=== PATIENT | male | born 1960 | race Caucasian/White ===

== ENCOUNTER → 2016-07-01 | Outpatient (REF) | payer MEDICARE | LOC: M SFHCPLAZ 08:54 | PROVIDERS: ATTEND Physician Assistant Medical | DX: D69.6 Thrombocytopenia, unspecified (principal); E04.1 Nontoxic single thyroid nodule; Z53.8 Procedure and treatment not carried out for other reasons ==

== ENCOUNTER → 2016-08-05 | Outpatient (REF) | payer MEDICARE ==
[2016-08-05 17:47] LABS: BASO # 0.1 K/mm3 (0.0-0.2); BASO % 0.7 % (0.0-1.0); EOS # 0.3 K/mm3 (0.0-0.50); EOS % 3.2 % (0.0-3.0); LARGE UNSTAINED CELL # 0.2 K/mm3 (0.0-0.4); LARGE UNSTAINED CELL % 2.1 % (0.0-4.0); LYMPH # 2.5 K/mm3 (1.5-4.5); LYMPH % 26.3 % (24.0-44.0); MEAN CORPUSCULAR HGB CONC 34.4 g/dl (32.0-36.5); MEAN CORPUSCULAR VOLUME 90.2 fl (80.0-96.0); MONO # 0.6 K/mm3 (0.0-0.8); MONO % 6.6 % (0.0-5.0); NEUTROPHILS # 5.5 K/mm3 (1.8-7.7); PLATELET COUNT, AUTOMATED 158 k/mm3 (150-450); RED CELL DISTRIBUTION WIDTH 13.4 % (11.5-14.5); WHITE BLOOD COUNT 8.9 K/mm3 (4.0-10.0)
[2016-08-05 18:20] LABS: ALBUMIN 4.1 GM/DL (3.2-5.2); ALBUMIN/GLOBULIN RATIO 1.21 (1.00-1.93); ALKALINE PHOSPHATASE 139 U/L (45-117); ALT/SGPT 37 U/L (12-78); ANION GAP 6 MEQ/L (8-16); AST/SGOT 24 U/L (15-37); BILIRUBIN,TOTAL 0.5 MG/DL (0.2-1.0); BLOOD UREA NITROGEN 18 MG/DL (7-18); CALCIUM LEVEL 8.7 MG/DL (8.5-10.1); CARBON DIOXIDE LEVEL 32 MEQ/L (21-32); CHLORIDE LEVEL 104 MEQ/L (98-107); CHOLESTEROL LEVEL 122 MG/DL (<200); CREATININE FOR GFR 0.94 MG/DL (0.70-1.30); FREE T4 1.03 NG/DL (0.76-1.46); GLOMERULAR FILTRATION RATE > 60.0 (>56); GLUCOSE, FASTING 83 MG/DL (70-105); POTASSIUM SERUM 4.1 MEQ/L (3.5-5.1); SODIUM LEVEL 142 MEQ/L (136-145); TOTAL PROTEIN 7.5 GM/DL (6.4-8.2); TRIGLYCERIDES LEVEL 451 MG/DL (<150)
== END ==
LOC: M SFHCPLAZ 15:46
PROVIDERS: ATTEND Physician Assistant Medical
DX: D69.6 Thrombocytopenia, unspecified (principal); N20.0 Calculus of kidney; E05.90 Thyrotoxicosis, unspecified without thyrotoxic crisis or storm; E78.2 Mixed hyperlipidemia

== ENCOUNTER → 2016-08-22 | Outpatient (CLI) | payer MEDICARE ==
--- NOTE | 2016-08-22 13:55 | REP ---
RENAL AND BLADDER ULTRASOUND: Real-time sonographic evaluation of the kidneys is performed and demonstrates both the kidneys to be normal in size and echotexture, right kidney measuring 14.2 x 5.8 x 5.3 cm and left kidney 14.2 x 4.6 x 5.2 cm. There is no hydronephrosis. There is a calculus in the mid right renal collecting system 8 mm in diameter. No other definite renal stones are seen. Urinary bladder measures 8.6 x 8.6 x 5.8 cm with no mass or calculus. Prevoid volume is 280 mL. There are ureteral jets in the urinary bladder with Doppler color evaluation bilaterally. Postvoid residual is 13 mL which is approximately 5% of the original volume. IMPRESSION: No hydronephrosis. There is a calculus in the mid right renal collecting system 8 mm in diameter in diameter. Signed by Skyler Howard MD 08/22/2016 04:43 P
== END ==
LOC: M RAD 11:45
PROVIDERS: ATTEND Physician Assistant Medical
DX: N20.0 Calculus of kidney (principal)

== ENCOUNTER → 2016-10-15 | Outpatient (REF) | payer MEDICARE | LOC: M SFHCPLAZ 14:11 | PROVIDERS: ATTEND Physician Assistant Medical | DX: G62.9 Polyneuropathy, unspecified (principal); R60.9 Edema, unspecified; I25.10 Atherosclerotic heart disease of native coronary artery without angina pectoris; I10 Essential (primary) hypertension; Z79.899 Other long term (current) drug therapy ==

== ENCOUNTER → 2016-10-29 | Outpatient (REF) | payer MEDICARE | LOC: M SFHCPLAZ 12:45 | PROVIDERS: ATTEND Physician Assistant Medical | DX: I25.10 Atherosclerotic heart disease of native coronary artery without angina pectoris (principal) ==

== ENCOUNTER → 2017-01-30 | Outpatient (REF) | payer MEDICARE ==
[2017-01-30 13:49] LABS: BASO % 0.6 % (0.0-1.0); EOS # 0.2 K/mm3 (0.0-0.50); EOS % 2.9 % (0.0-3.0); LARGE UNSTAINED CELL # 0.2 K/mm3 (0.0-0.4); LARGE UNSTAINED CELL % 2.7 % (0.0-4.0); LYMPH # 1.9 K/mm3 (1.5-4.5); LYMPH % 27.8 % (24.0-44.0); MEAN CORPUSCULAR HEMOGLOBIN 32.1 pg (27.0-33.0); MEAN CORPUSCULAR HGB CONC 35.5 g/dl (32.0-36.5); MEAN CORPUSCULAR VOLUME 90.6 fl (80.0-96.0); MONO # 0.4 K/mm3 (0.0-0.8); MONO % 6.2 % (0.0-5.0); NEUTROPHILS % 59.7 % (36.0-66.0); PLATELET COUNT, AUTOMATED 136 k/mm3 (150-450); RED CELL DISTRIBUTION WIDTH 12.8 % (11.5-14.5); WHITE BLOOD COUNT 6.6 K/mm3 (4.0-10.0)
[2017-01-30 14:38] LABS: ALBUMIN 4.2 GM/DL (3.2-5.2); ALKALINE PHOSPHATASE 102 U/L (45-117); ALT/SGPT 36 U/L (12-78); ANION GAP 10 MEQ/L (8-16); AST/SGOT 24 U/L (15-37); BILIRUBIN,TOTAL 0.5 MG/DL (0.2-1.0); BLOOD UREA NITROGEN 16 MG/DL (7-18); CALCIUM LEVEL 8.7 MG/DL (8.5-10.1); CARBON DIOXIDE LEVEL 26 MEQ/L (21-32); CHLORIDE LEVEL 107 MEQ/L (98-107); CREATININE FOR GFR 0.92 MG/DL (0.70-1.30); GLOMERULAR FILTRATION RATE > 60.0 (>56); GLUCOSE, FASTING 70 MG/DL (70-105); POTASSIUM SERUM 4.4 MEQ/L (3.5-5.1); SODIUM LEVEL 143 MEQ/L (136-145); TOTAL PROTEIN 7.2 GM/DL (6.4-8.2)
== END ==
LOC: M SFHCPLAZ 11:36
PROVIDERS: ATTEND Physician Assistant Medical
DX: D69.6 Thrombocytopenia, unspecified (principal); E78.2 Mixed hyperlipidemia; I10 Essential (primary) hypertension

== ENCOUNTER → 2017-03-20 | Outpatient (REF) | payer MEDICARE ==
[2017-03-20 16:14] LABS: BASO % 0.4 % (0.0-1.0); EOS # 0.2 10^3/uL (0.0-0.50); EOS % 2.1 % (0.0-3.0); IMMATURE GRANULOCYTE % 0.1 % (0-0); LYMPH # 2.8 10^3/uL (1.5-4.5); MEAN CORPUSCULAR HEMOGLOBIN 31.3 pg (27.0-33.0); MEAN CORPUSCULAR HGB CONC 33.3 g/dl (32.0-36.5); MEAN CORPUSCULAR VOLUME 93.8 fl (80.0-96.0); MONO # 0.9 10^3/uL (0.0-0.8); MONO % 10.9 % (0.0-5.0); NEUTROPHILS # 4.3 10^3/uL (1.8-7.7); NEUTROPHILS % 52.5 % (36.0-66.0); PLATELET COUNT, AUTOMATED 134 10^3/uL (150-450); RED CELL DISTRIBUTION WIDTH 13.5 % (11.5-14.5); WHITE BLOOD COUNT 8.1 10^3/uL (4.0-10.0)
[2017-03-20 16:27] LABS: ADD MORPHOLOGY? NO
[2017-03-20 16:44] LABS: ERYTHROCYTE SEDIMENTATION RATE 12 mm/hr (0-20)
== END ==
LOC: M SFHCPLAZ 12:23
PROVIDERS: ATTEND Internal Medicine Infectious Disease
DX: H70.11 Chronic mastoiditis, right ear (principal)

== ENCOUNTER → 2017-05-13 | Outpatient (REF) | payer MEDICARE | LOC: M SFHCPLAZ 15:37 | PROVIDERS: ATTEND Internal Medicine Infectious Disease | DX: H70.11 Chronic mastoiditis, right ear (principal) ==

== ENCOUNTER 2017-06-14 22:21 | Emergency (ER) | payer BC, MEDICARE ==
[2017-06-14 23:55] LABS: BASO % 0.4 % (0.0-1.0); EOS # 0.2 10^3/uL (0.0-0.50); EOS % 2.7 % (0.0-3.0); HEMATOCRIT 40.4 % (42.0-52.0); HEMOGLOBIN 14.2 g/dl (14.0-18.0); IMMATURE GRANULOCYTE % 0.3 % (0-0); LYMPH # 1.9 10^3/uL (1.5-4.5); LYMPH % 26.5 % (24.0-44.0); MEAN CORPUSCULAR HEMOGLOBIN 31.3 pg (27.0-33.0); MEAN CORPUSCULAR HGB CONC 35.1 g/dl (32.0-36.5); MEAN CORPUSCULAR VOLUME 89.2 fl (80.0-96.0); MONO # 0.6 10^3/uL (0.0-0.8); MONO % 8.9 % (0.0-5.0); NEUTROPHILS # 4.4 10^3/uL (1.8-7.7); NEUTROPHILS % 61.2 % (36.0-66.0); PLATELET COUNT, AUTOMATED 121 10^3/uL (150-450); RED BLOOD COUNT 4.53 10^6/uL (4.30-6.10); RED CELL DISTRIBUTION WIDTH 12.5 % (11.5-14.5); WHITE BLOOD COUNT 7.1 10^3/uL (4.0-10.0)
[2017-06-15 00:14] LABS: ERYTHROCYTE SEDIMENTATION RATE 10 mm/hr (0-20)
[2017-06-15 00:23] LABS: ALBUMIN 3.9 GM/DL (3.2-5.2); ALBUMIN/GLOBULIN RATIO 1.26 (1.00-1.93); ALKALINE PHOSPHATASE 91 U/L (45-117); ALT/SGPT 45 U/L (12-78); ANION GAP 8 MEQ/L (8-16); AST/SGOT 32 U/L (7-37); BILIRUBIN,DIRECT 0.1 MG/DL (0.0-0.2); BILIRUBIN,TOTAL 0.5 MG/DL (0.2-1.0); BLOOD UREA NITROGEN 14 MG/DL (7-18); C REACTIVE PROTEIN QUANTITATIV < 0.30 MG/DL (0.00-0.30); CALCIUM LEVEL 8.8 MG/DL (8.5-10.1); CARBON DIOXIDE LEVEL 28 MEQ/L (21-32); CHLORIDE LEVEL 107 MEQ/L (98-107); CREATININE FOR GFR 0.82 MG/DL (0.70-1.30); GLOMERULAR FILTRATION RATE > 60.0 (>56); GLUCOSE, FASTING 90 MG/DL (70-105); POTASSIUM SERUM 4.1 MEQ/L (3.5-5.1); SODIUM LEVEL 143 MEQ/L (136-145)
[2017-06-15 00:31] LABS: LACTIC ACID SEPSIS PROTOCOL 1.5 MMOL/L (0.4-2.0)
[2017-06-15] MEDS: ACETAMINOPHEN TAB 650MG DOSE (2X325MG) PO (01:46)
[2017-06-15] MEDS: MORPHINE 4 MG/ML 1ML SYRINGE IV (02:35)
== END 2017-06-15 05:03 | disposition short-term general hospital (02) ==
LOC: M ED 06-15 05:03
DX: M79.671 Pain in right foot (principal); M79.672 Pain in left foot; I11.0 Hypertensive heart disease with heart failure; I50.9 Heart failure, unspecified; G47.33 Obstructive sleep apnea (adult) (pediatric); I25.2 Old myocardial infarction; E78.5 Hyperlipidemia, unspecified; K21.9 Gastro-esophageal reflux disease without esophagitis; Z99.89 Dependence on other enabling machines and devices; Z79.899 Other long term (current) drug therapy; Z79.01 Long term (current) use of anticoagulants; Z88.0 Allergy status to penicillin; Z88.8 Allergy status to other drugs, medicaments and biological substances; Z87.891 Personal history of nicotine dependence
CPT/HCPCS: 93970

== ENCOUNTER 2017-07-10 08:45 | Inpatient (IN) | payer MEDICARE, BC ==
[2017-07-10 09:21] LABS: VENOUS BASE EXCESS 2.1 (-2.0-2.0); VENOUS HCO3 30.1 MEQ/L (23.0-27.0); VENOUS O2 SATURATION 42.2 % (60.0-80.0); VENOUS PARTIAL PRESSURE CO2 60.5 mmHg (38.0-50.0); VENOUS PARTIAL PRESSURE O2 24.7 mmHg (30.0-50.0); VENOUS PH 7.314 UNITS (7.330-7.430); VENOUS STANDARD HCO3 24.8 MEQ/L; VENOUS TOTAL CO2 31.9 MEQ/L (24.0-28.0)
[2017-07-10 09:24] LABS: BASO % 0.5 % (0.0-1.0); EOS # 0.1 10^3/uL (0.0-0.50); EOS % 1.7 % (0.0-3.0); HEMATOCRIT 44.1 % (42.0-52.0); HEMOGLOBIN 15.2 g/dl (14.0-18.0); IMMATURE GRANULOCYTE % 0.3 % (0-0); LYMPH # 1.9 10^3/uL (1.5-4.5); LYMPH % 25.8 % (24.0-44.0); MEAN CORPUSCULAR HEMOGLOBIN 31.5 pg (27.0-33.0); MEAN CORPUSCULAR HGB CONC 34.5 g/dl (32.0-36.5); MEAN CORPUSCULAR VOLUME 91.3 fl (80.0-96.0); MONO # 0.9 10^3/uL (0.0-0.8); MONO % 11.9 % (0.0-5.0); NEUTROPHILS # 4.5 10^3/uL (1.8-7.7); NEUTROPHILS % 59.8 % (36.0-66.0); PLATELET COUNT, AUTOMATED 137 10^3/uL (150-450); RED BLOOD COUNT 4.83 10^6/uL (4.30-6.10); RED CELL DISTRIBUTION WIDTH 13.1 % (11.5-14.5); WHITE BLOOD COUNT 7.5 10^3/uL (4.0-10.0)
[2017-07-10 09:38] LABS: INR 1.12; PROTHROMBIN TIME 14.6 SECONDS (12.4-14.5)
[2017-07-10 09:52] LABS: ANION GAP 6 MEQ/L (8-16); BLOOD UREA NITROGEN 18 MG/DL (7-18); CALCIUM LEVEL 9.3 MG/DL (8.5-10.1); CARBON DIOXIDE LEVEL 31 MEQ/L (21-32); CHLORIDE LEVEL 102 MEQ/L (98-107); CPK CREATINE PHOSPHOKINASE 78 U/L (39-308); CREATININE FOR GFR 1.14 MG/DL (0.70-1.30); GLOMERULAR FILTRATION RATE > 60.0 (>56); GLUCOSE, FASTING 76 MG/DL (70-100); MAGNESIUM LEVEL 2.1 MG/DL (1.8-2.4); POTASSIUM SERUM 4.5 MEQ/L (3.5-5.1); SODIUM LEVEL 139 MEQ/L (136-145); TROPONIN I < 0.02 NG/ML (< 0.10)
[2017-07-10 09:57] LABS: CK-MB VALUE MASS 1.1 NG/ML (0.0-3.6); MB/CK RELATIVE INDEX 1.41 (< OR =4)
[2017-07-10] MEDS: NS 500 ML IV (10:45)
[2017-07-10] MEDS ORDERED: ACETAMINOPHEN TAB 650MG DOSE (2X325MG) PO (13:00)
[2017-07-10] MEDS ORDERED: ISOVUE-370 76% 100ML VIAL (Q9967) As Ordered (13:48)
[2017-07-10] MEDS: ENOXAPARIN 40 MG/0.4 ML SYRINGE (J1650) SC (15:11)
[2017-07-10] MEDS: NORCO, ANEXSIA 5/325MG TABLET (HYDROcodone/ACETAMINOPHEN) PO (15:12)
[2017-07-10] MEDS: GABAPENTIN 400 MG CAP PO (16:29)
[2017-07-10] MEDS: PERCOCET 5MG/325MG TAB PO (18:41)
[2017-07-10 18:52] LABS: CK-MB VALUE MASS 1.3 NG/ML (0.0-3.6); CPK CREATINE PHOSPHOKINASE 61 U/L (39-308); MB/CK RELATIVE INDEX 2.13 (< OR =4); TROPONIN I < 0.02 NG/ML (< 0.10)
[2017-07-10 18:57] LABS: CORTISOL AM 15.2 UG/DL (4.3-22.4)
[2017-07-10] MEDS: ATORVASTATIN 20 MG TAB PO (20:35)
[2017-07-10] MEDS: GABAPENTIN 300 MG CAP PO (20:35)
[2017-07-10] MEDS: METOPROLOL TART 50 MG TAB PO (20:36)
[2017-07-10] MEDS: zolPIDEM TARTRATE 10MG TAB PO (22:10)
[2017-07-11] MEDS: PERCOCET 5MG/325MG TAB PO ×2 (00:41→17:01)
[2017-07-11 05:31] LABS: HEMOGLOBIN 13.5 g/dl (14.0-18.0); MEAN CORPUSCULAR HEMOGLOBIN 31.5 pg (27.0-33.0); MEAN CORPUSCULAR HGB CONC 33.8 g/dl (32.0-36.5); MEAN CORPUSCULAR VOLUME 93.2 fl (80.0-96.0); PLATELET COUNT, AUTOMATED 115 10^3/uL (150-450); RED BLOOD COUNT 4.29 10^6/uL (4.30-6.10); RED CELL DISTRIBUTION WIDTH 13.2 % (11.5-14.5); WHITE BLOOD COUNT 5.6 10^3/uL (4.0-10.0)
[2017-07-11 05:56] LABS: ANION GAP 6 MEQ/L (8-16); BLOOD UREA NITROGEN 16 MG/DL (7-18); CALCIUM LEVEL 8.8 MG/DL (8.5-10.1); CARBON DIOXIDE LEVEL 29 MEQ/L (21-32); CHLORIDE LEVEL 104 MEQ/L (98-107); CPK CREATINE PHOSPHOKINASE 63 U/L (39-308); CREATININE FOR GFR 1.07 MG/DL (0.70-1.30); GLOMERULAR FILTRATION RATE > 60.0 (>56); GLUCOSE, FASTING 107 MG/DL (70-100); MB/CK RELATIVE INDEX 1.58 (< OR =4); POTASSIUM SERUM 3.7 MEQ/L (3.5-5.1); SODIUM LEVEL 139 MEQ/L (136-145); TROPONIN I < 0.02 NG/ML (< 0.10)
[2017-07-11] MEDS: PANTOPRAZOLE 40MG TAB (PROTONIX) PO (08:45)
[2017-07-11] MEDS: CLOPIDOGREL 75 MG TAB PO (08:45)
[2017-07-11] MEDS: FUROSEMIDE 40 MG TAB PO (08:45)
[2017-07-11] MEDS: DULoxetine 30 MG CAP (CYMBALTA) PO (08:45)
[2017-07-11] MEDS: GABAPENTIN 400 MG CAP PO ×2 (08:45→17:00)
[2017-07-11] MEDS: ENOXAPARIN 40 MG/0.4 ML SYRINGE (J1650) SC (08:45)
[2017-07-11] MEDS: METOPROLOL TART 50 MG TAB PO ×2 (10:00→20:15)
[2017-07-11 12:42] LABS: CK-MB VALUE MASS 1.1 NG/ML (0.0-3.6); CPK CREATINE PHOSPHOKINASE 63 U/L (39-308); MB/CK RELATIVE INDEX 1.74 (< OR =4); TROPONIN I < 0.02 NG/ML (< 0.10)
[2017-07-11] MEDS: NORCO, ANEXSIA 5/325MG TABLET (HYDROcodone/ACETAMINOPHEN) PO ×2 (13:09→22:13)
[2017-07-11] MEDS: GABAPENTIN 300 MG CAP PO (20:20)
[2017-07-11] MEDS: ATORVASTATIN 20 MG TAB PO (20:20)
[2017-07-11] MEDS: zolPIDEM TARTRATE 10MG TAB PO (22:13)
[2017-07-12] MEDS: PERCOCET 5MG/325MG TAB PO ×3 (03:58→21:50)
[2017-07-12 05:20] LABS: HEMATOCRIT 40.5 % (42.0-52.0); HEMOGLOBIN 13.8 g/dl (14.0-18.0); MEAN CORPUSCULAR HEMOGLOBIN 30.9 pg (27.0-33.0); MEAN CORPUSCULAR HGB CONC 34.1 g/dl (32.0-36.5); MEAN CORPUSCULAR VOLUME 90.8 fl (80.0-96.0); PLATELET COUNT, AUTOMATED 103 10^3/uL (150-450); RED BLOOD COUNT 4.46 10^6/uL (4.30-6.10); RED CELL DISTRIBUTION WIDTH 12.8 % (11.5-14.5); WHITE BLOOD COUNT 4.6 10^3/uL (4.0-10.0)
[2017-07-12 05:41] LABS: ANION GAP 6 MEQ/L (8-16); BLOOD UREA NITROGEN 14 MG/DL (7-18); CALCIUM LEVEL 8.6 MG/DL (8.5-10.1); CARBON DIOXIDE LEVEL 29 MEQ/L (21-32); CHLORIDE LEVEL 107 MEQ/L (98-107); CREATININE FOR GFR 0.91 MG/DL (0.70-1.30); GLOMERULAR FILTRATION RATE > 60.0 (>56); GLUCOSE, FASTING 111 MG/DL (70-100); POTASSIUM SERUM 3.8 MEQ/L (3.5-5.1); SODIUM LEVEL 142 MEQ/L (136-145)
[2017-07-12] MEDS: GABAPENTIN 400 MG CAP PO (08:49)
[2017-07-12] MEDS: ENOXAPARIN 40 MG/0.4 ML SYRINGE (J1650) SC (08:49)
[2017-07-12] MEDS: DULoxetine 20 MG CAP (CYMBALTA) PO (08:49)
[2017-07-12] MEDS: PANTOPRAZOLE 40MG TAB (PROTONIX) PO (08:50)
[2017-07-12] MEDS: NORCO, ANEXSIA 5/325MG TABLET (HYDROcodone/ACETAMINOPHEN) PO (08:50)
[2017-07-12] MEDS: CLOPIDOGREL 75 MG TAB PO (08:50)
[2017-07-12] MEDS: FUROSEMIDE 40 MG TAB PO (08:51)
[2017-07-12] MEDS: METOPROLOL TART 50 MG TAB PO ×2 (08:51→21:50)
[2017-07-12] MEDS ORDERED: SLF 3 ML SYR IV (11:15)
[2017-07-12] MEDS: SLF 3 ML SYR IV ×2 (12:00→21:51)
[2017-07-12] MEDS: GABAPENTIN 300 MG CAP PO ×2 (15:02→21:48)
[2017-07-12] MEDS: zolPIDEM TARTRATE 10MG TAB PO (21:48)
[2017-07-12] MEDS: ATORVASTATIN 20 MG TAB PO (21:50)
[2017-07-13] MEDS: NORCO, ANEXSIA 5/325MG TABLET (HYDROcodone/ACETAMINOPHEN) PO ×2 (01:16→09:03)
[2017-07-13 06:03] LABS: HEMOGLOBIN 13.7 g/dl (14.0-18.0); MEAN CORPUSCULAR HEMOGLOBIN 31.4 pg (27.0-33.0); MEAN CORPUSCULAR HGB CONC 34.3 g/dl (32.0-36.5); MEAN CORPUSCULAR VOLUME 91.5 fl (80.0-96.0); PLATELET COUNT, AUTOMATED 102 10^3/uL (150-450); RED BLOOD COUNT 4.37 10^6/uL (4.30-6.10); RED CELL DISTRIBUTION WIDTH 12.9 % (11.5-14.5); WHITE BLOOD COUNT 5.3 10^3/uL (4.0-10.0)
[2017-07-13 06:20] LABS: ANION GAP 6 MEQ/L (8-16); BLOOD UREA NITROGEN 12 MG/DL (7-18); CALCIUM LEVEL 8.9 MG/DL (8.5-10.1); CARBON DIOXIDE LEVEL 30 MEQ/L (21-32); CHLORIDE LEVEL 105 MEQ/L (98-107); CREATININE FOR GFR 0.91 MG/DL (0.70-1.30); GLOMERULAR FILTRATION RATE > 60.0 (>56); GLUCOSE, FASTING 87 MG/DL (70-100); POTASSIUM SERUM 4.2 MEQ/L (3.5-5.1); SODIUM LEVEL 141 MEQ/L (136-145)
[2017-07-13] MEDS: SLF 3 ML SYR IV (06:47)
[2017-07-13] MEDS: GABAPENTIN 300 MG CAP PO (09:03)
[2017-07-13] MEDS: METOPROLOL TART 50 MG TAB PO (09:03)
[2017-07-13] MEDS: CLOPIDOGREL 75 MG TAB PO (09:04)
[2017-07-13] MEDS: FUROSEMIDE 40 MG TAB PO (09:04)
[2017-07-13] MEDS: ENOXAPARIN 40 MG/0.4 ML SYRINGE (J1650) SC (09:04)
[2017-07-13] MEDS: DULoxetine 20 MG CAP (CYMBALTA) PO (09:04)
[2017-07-13] MEDS: PANTOPRAZOLE 40MG TAB (PROTONIX) PO (09:04)
[2017-07-13 12:39] LABS: PSA SCREENING 0.93 NG/ML (< 4.0)
== END 2017-07-13 13:42 | disposition home or self-care (01) | DRG 312 ==
LOC: M PCU 07-12 05:54 → M MSPAV 07-12 19:44 → M ED 08:45 → M ED INP 12:52 → M PCU 19:00
DX: I95.2 Hypotension due to drugs (principal); Z68.42 Body mass index [BMI] 45.0-49.9, adult; I50.812 Chronic right heart failure; E66.01 Morbid (severe) obesity due to excess calories; I11.0 Hypertensive heart disease with heart failure; J44.9 Chronic obstructive pulmonary disease, unspecified; I25.10 Atherosclerotic heart disease of native coronary artery without angina pectoris; Z95.810 Presence of automatic (implantable) cardiac defibrillator; I25.2 Old myocardial infarction; Z95.5 Presence of coronary angioplasty implant and graft; Z86.74 Personal history of sudden cardiac arrest; Z88.0 Allergy status to penicillin; Z88.8 Allergy status to other drugs, medicaments and biological substances; Z79.899 Other long term (current) drug therapy; Z87.891 Personal history of nicotine dependence; N40.0 Benign prostatic hyperplasia without lower urinary tract symptoms; T43.015A Adverse effect of tricyclic antidepressants, initial encounter

== ENCOUNTER → 2017-07-25 | Outpatient (REF) | payer MEDICARE ==
[2017-07-25 13:02] LABS: BASO % 0.5 % (0.0-1.0); EOS # 0.2 10^3/uL (0.0-0.50); EOS % 2.5 % (0.0-3.0); HEMATOCRIT 43.1 % (42.0-52.0); HEMOGLOBIN 14.7 g/dl (14.0-18.0); IMMATURE GRANULOCYTE % 0.2 % (0-3.0); LYMPH # 1.9 10^3/uL (1.5-4.5); LYMPH % 23.1 % (24.0-44.0); MEAN CORPUSCULAR HEMOGLOBIN 31.5 pg (27.0-33.0); MEAN CORPUSCULAR HGB CONC 34.1 g/dl (32.0-36.5); MEAN CORPUSCULAR VOLUME 92.3 fl (80.0-96.0); MONO # 0.9 10^3/uL (0.0-0.8); MONO % 10.7 % (0.0-5.0); NEUTROPHILS # 5.1 10^3/uL (1.8-7.7); PLATELET COUNT, AUTOMATED 155 10^3/uL (150-450); RED BLOOD COUNT 4.67 10^6/uL (4.30-6.10); RED CELL DISTRIBUTION WIDTH 13.2 % (11.5-14.5); WHITE BLOOD COUNT 8.2 10^3/uL (4.0-10.0)
[2017-07-25 13:35] LABS: ALBUMIN 4.3 GM/DL (3.2-5.2); ALBUMIN/GLOBULIN RATIO 1.39 (1.00-1.93); ALKALINE PHOSPHATASE 95 U/L (45-117); ALT/SGPT 44 U/L (12-78); ANION GAP 7 MEQ/L (8-16); AST/SGOT 25 U/L (7-37); BILIRUBIN,TOTAL 0.7 MG/DL (0.2-1.0); BLOOD UREA NITROGEN 13 MG/DL (7-18); CALCIUM LEVEL 9.3 MG/DL (8.5-10.1); CARBON DIOXIDE LEVEL 31 MEQ/L (21-32); CHLORIDE LEVEL 104 MEQ/L (98-107); CREATININE FOR GFR 1.02 MG/DL (0.70-1.30); GLOMERULAR FILTRATION RATE > 60.0 (>56); GLUCOSE, FASTING 92 MG/DL (70-100); POTASSIUM SERUM 4.3 MEQ/L (3.5-5.1); SODIUM LEVEL 142 MEQ/L (136-145); TOTAL PROTEIN 7.4 GM/DL (6.4-8.2)
== END ==
LOC: M SFHCPLAZ 08:47
DX: R55 Syncope and collapse (principal)
CPT/HCPCS: 80053

== ENCOUNTER → 2017-07-31 | Outpatient (REF) | payer MEDICARE ==
[2017-07-31 11:00] LABS: BASO % 0.5 % (0.0-1.0); EOS # 0.1 10^3/uL (0.0-0.50); EOS % 1.8 % (0.0-3.0); HEMATOCRIT 44.4 % (42.0-52.0); HEMOGLOBIN 15.2 g/dl (14.0-18.0); IMMATURE GRANULOCYTE % 0.3 % (0-3.0); LYMPH % 33.6 % (24.0-44.0); MEAN CORPUSCULAR HEMOGLOBIN 31.3 pg (27.0-33.0); MEAN CORPUSCULAR HGB CONC 34.2 g/dl (32.0-36.5); MEAN CORPUSCULAR VOLUME 91.5 fl (80.0-96.0); MONO # 0.7 10^3/uL (0.0-0.8); MONO % 11.2 % (0.0-5.0); NEUTROPHILS # 3.1 10^3/uL (1.8-7.7); NEUTROPHILS % 52.6 % (36.0-66.0); PLATELET COUNT, AUTOMATED 145 10^3/uL (150-450); RED BLOOD COUNT 4.85 10^6/uL (4.30-6.10); RED CELL DISTRIBUTION WIDTH 12.9 % (11.5-14.5)
[2017-07-31 11:32] LABS: ERYTHROCYTE SEDIMENTATION RATE 7 mm/hr (0-20)
[2017-07-31 11:33] LABS: ALBUMIN 4.4 GM/DL (3.2-5.2); ALBUMIN/GLOBULIN RATIO 1.47 (1.00-1.93); ALKALINE PHOSPHATASE 102 U/L (45-117); ALT/SGPT 42 U/L (12-78); ANION GAP 6 MEQ/L (8-16); AST/SGOT 23 U/L (7-37); BILIRUBIN,TOTAL 0.7 MG/DL (0.2-1.0); BLOOD UREA NITROGEN 15 MG/DL (7-18); C REACTIVE PROTEIN QUANTITATIV < 0.30 MG/DL (0.00-0.30); CALCIUM LEVEL 9.2 MG/DL (8.5-10.1); CARBON DIOXIDE LEVEL 31 MEQ/L (21-32); CHLORIDE LEVEL 104 MEQ/L (98-107); CREATININE FOR GFR 0.97 MG/DL (0.70-1.30); GLOMERULAR FILTRATION RATE > 60.0 (>56); GLUCOSE, FASTING 88 MG/DL (70-100); POTASSIUM SERUM 4.4 MEQ/L (3.5-5.1); PSA SCREENING 1.11 NG/ML (< 4.0); SODIUM LEVEL 141 MEQ/L (136-145); TOTAL PROTEIN 7.4 GM/DL (6.4-8.2)
== END ==
LOC: M SFHCPLAZ 09:12
DX: H70.11 Chronic mastoiditis, right ear (principal); N40.2 Nodular prostate without lower urinary tract symptoms; R55 Syncope and collapse; I73.9 Peripheral vascular disease, unspecified
CPT/HCPCS: 80053

== ENCOUNTER → 2017-09-01 | Outpatient (CLI) | payer MEDICARE ==
[~2017-09-01] MED LIST: ISOVUE-370 76% 100ML VIAL (Q9967) As Ordered
== END ==
LOC: M RAD 14:02
DX: R55 Syncope and collapse (principal)
CPT/HCPCS: Q9967

== ENCOUNTER 2017-09-07 16:17 | Emergency (ER) | payer MEDICARE ==
[2017-09-07 17:50] LABS: BASO % 0.4 % (0.0-1.0); EOS # 0.1 10^3/uL (0.0-0.50); EOS % 1.8 % (0.0-3.0); HEMATOCRIT 45.5 % (42.0-52.0); HEMOGLOBIN 15.3 g/dl (14.0-18.0); LYMPH # 1.5 10^3/uL (1.5-4.5); LYMPH % 27.4 % (24.0-44.0); MEAN CORPUSCULAR HEMOGLOBIN 30.8 pg (27.0-33.0); MEAN CORPUSCULAR HGB CONC 33.6 g/dl (32.0-36.5); MEAN CORPUSCULAR VOLUME 91.5 fl (80.0-96.0); MONO # 0.5 10^3/uL (0.0-0.8); MONO % 8.7 % (0.0-5.0); NEUTROPHILS # 3.4 10^3/uL (1.8-7.7); NEUTROPHILS % 61.7 % (36.0-66.0); PLATELET COUNT, AUTOMATED 122 10^3/uL (150-450); RED BLOOD COUNT 4.97 10^6/uL (4.30-6.10); RED CELL DISTRIBUTION WIDTH 12.8 % (11.5-14.5); WHITE BLOOD COUNT 5.5 10^3/uL (4.0-10.0)
[2017-09-07 18:14] LABS: ANION GAP 7 MEQ/L (8-16); BLOOD UREA NITROGEN 12 MG/DL (7-18); CARBON DIOXIDE LEVEL 30 MEQ/L (21-32); CHLORIDE LEVEL 104 MEQ/L (98-107); CREATININE FOR GFR 0.97 MG/DL (0.70-1.30); GLOMERULAR FILTRATION RATE > 60.0 (>56); GLUCOSE, FASTING 83 MG/DL (70-100); POTASSIUM SERUM 4.2 MEQ/L (3.5-5.1); SODIUM LEVEL 141 MEQ/L (136-145)
[2017-09-07 18:24] LABS: LACTIC ACID SEPSIS PROTOCOL 1.6 MMOL/L (0.4-2.0)
[2017-09-07] MEDS: MORPHINE 4 MG/ML 1ML VIAL (J2270) IV (18:25)
== END 2017-09-07 19:41 | disposition home or self-care (01) ==
LOC: M ED 16:17
DX: I87.2 Venous insufficiency (chronic) (peripheral) (principal); G62.9 Polyneuropathy, unspecified; Z87.891 Personal history of nicotine dependence; Z88.8 Allergy status to other drugs, medicaments and biological substances; Z88.0 Allergy status to penicillin; Z79.899 Other long term (current) drug therapy; Z79.02 Long term (current) use of antithrombotics/antiplatelets; Z79.891 Long term (current) use of opiate analgesic
CPT/HCPCS: J2270

== ENCOUNTER 2017-09-11 11:37 | Inpatient (IN) | payer MEDICARE ==
[2017-09-11] MEDS: METOPROLOL TART 50 MG TAB PO ×2 (09:00→21:42)
[~2017-09-11 11:37] MED LIST changes: -ISOVUE-370 76% 100ML VIAL (Q9967) As Ordered; +ONDANSETRON 4MG/2ML VIAL (J2405) IV; +PERCOCET 5MG/325MG TAB PO; +zolPIDEM TARTRATE 10MG TAB PO
[2017-09-11] MEDS ORDERED: METHOCARBAMOL 500 MG TAB PO (11:45)
[2017-09-11 12:17] LABS: BASO % 0.6 % (0.0-1.0); EOS # 0.1 10^3/uL (0.0-0.50); EOS % 2.6 % (0.0-3.0); HEMATOCRIT 47.1 % (42.0-52.0); HEMOGLOBIN 15.7 g/dl (13.5-17.5); IMMATURE GRANULOCYTE % 0.2 % (0-3.0); LYMPH # 1.7 10^3/uL (1.5-4.5); LYMPH % 31.4 % (24.0-44.0); MEAN CORPUSCULAR HGB CONC 33.3 g/dl (32.0-36.5); MEAN CORPUSCULAR VOLUME 92.9 fl (80.0-96.0); MONO # 0.5 10^3/uL (0.0-0.8); MONO % 9.8 % (0.0-5.0); NEUTROPHILS # 2.9 10^3/uL (1.8-7.7); NEUTROPHILS % 55.4 % (36.0-66.0); PLATELET COUNT, AUTOMATED 134 10^3/uL (150-450); RED BLOOD COUNT 5.07 10^6/uL (4.30-6.10); RED CELL DISTRIBUTION WIDTH 13.2 % (11.5-14.5); WHITE BLOOD COUNT 5.3 10^3/uL (4.0-10.0)
[2017-09-11 12:29] LABS: INR 1.09; PROTHROMBIN TIME 14.3 SECONDS (12.4-14.5)
[2017-09-11] MEDS: NORCO, ANEXSIA 5/325MG TABLET (HYDROcodone/ACETAMINOPHEN) PO ×2 (12:33→16:27)
[2017-09-11 13:00] LABS: ALBUMIN 4.8 GM/DL (3.2-5.2); ALKALINE PHOSPHATASE 114 U/L (45-117); ALT/SGPT 46 U/L (12-78); ANION GAP 11 MEQ/L (8-16); AST/SGOT 37 U/L (7-37); BILIRUBIN,TOTAL 0.9 MG/DL (0.2-1.0); BLOOD UREA NITROGEN 14 MG/DL (7-18); CALCIUM LEVEL 9.3 MG/DL (8.5-10.1); CARBON DIOXIDE LEVEL 27 MEQ/L (21-32); CHLORIDE LEVEL 102 MEQ/L (98-107); CHOLESTEROL LEVEL 126 MG/DL (< 200); CPK CREATINE PHOSPHOKINASE 76 U/L (39-308); CREATININE FOR GFR 1.18 MG/DL (0.70-1.30); GLOMERULAR FILTRATION RATE > 60.0 (>56); GLUCOSE, FASTING 67 MG/DL (70-100); LDH LACTATE DEHYDROGENASE 205 U/L (87-241); MAGNESIUM LEVEL 2.2 MG/DL (1.8-2.4); PHOSPHORUS LEVEL 3.1 MG/DL (2.5-4.9); POTASSIUM SERUM 3.9 MEQ/L (3.5-5.1); SODIUM LEVEL 140 MEQ/L (136-145); TRIGLYCERIDES LEVEL 153 MG/DL (<150); TROPONIN I < 0.02 NG/ML (< 0.10)
[2017-09-11] MEDS: NORTRIPTYLINE 25 MG CAP PO ×2 (16:25→21:42)
[2017-09-11] MEDS: METHOCARBAMOL 500 MG TAB PO ×2 (16:26→21:41)
[2017-09-11 20:33] LABS: TROPONIN I < 0.02 NG/ML (< 0.10)
[2017-09-11] MEDS ORDERED: PREGABALIN 25 MG CAP (LYRICA) PO (21:00)
[2017-09-11] MEDS: zolPIDEM CR 6.25MG TABLET (AMBIEN CR) PO (21:42)
[2017-09-11] MEDS: ATORVASTATIN 20 MG TAB PO (21:42)
[2017-09-11] MEDS: MORPHINE 4 MG/ML 1ML VIAL (J2270) IV (21:43)
[2017-09-12] MEDS: MORPHINE 4 MG/ML 1ML VIAL (J2270) IV ×5 (01:11→19:22)
[2017-09-12] MEDS: NORCO, ANEXSIA 5/325MG TABLET (HYDROcodone/ACETAMINOPHEN) PO ×4 (01:31→19:23)
[2017-09-12 05:32] LABS: EOS # 0.2 10^3/uL (0.0-0.50); EOS % 4.5 % (0.0-3.0); HEMATOCRIT 39.5 % (42.0-52.0); LYMPH # 1.6 10^3/uL (1.5-4.5); LYMPH % 39.1 % (24.0-44.0); MEAN CORPUSCULAR HEMOGLOBIN 31.1 pg (27.0-33.0); MEAN CORPUSCULAR HGB CONC 34.4 g/dl (32.0-36.5); MEAN CORPUSCULAR VOLUME 90.4 fl (80.0-96.0); MONO # 0.7 10^3/uL (0.0-0.8); MONO % 17.3 % (0.0-5.0); NEUTROPHILS # 1.5 10^3/uL (1.8-7.7); NEUTROPHILS % 38.1 % (36.0-66.0); PLATELET COUNT, AUTOMATED 108 10^3/uL (150-450); RED BLOOD COUNT 4.37 10^6/uL (4.30-6.10)
[2017-09-12 05:41] LABS: HEMOGLOBIN 13.6 g/dl (13.5-17.5)
[2017-09-12 05:55] LABS: ALBUMIN 3.8 GM/DL (3.2-5.2); ALBUMIN/GLOBULIN RATIO 1.19 (1.00-1.93); ALKALINE PHOSPHATASE 87 U/L (45-117); ALT/SGPT 35 U/L (12-78); ANION GAP 5 MEQ/L (8-16); AST/SGOT 26 U/L (7-37); BILIRUBIN,TOTAL 0.4 MG/DL (0.2-1.0); BLOOD UREA NITROGEN 16 MG/DL (7-18); CALCIUM LEVEL 8.6 MG/DL (8.5-10.1); CARBON DIOXIDE LEVEL 28 MEQ/L (21-32); CHLORIDE LEVEL 109 MEQ/L (98-107); CREATININE FOR GFR 0.96 MG/DL (0.70-1.30); GLOMERULAR FILTRATION RATE > 60.0 (>56); GLUCOSE, FASTING 100 MG/DL (70-100); POTASSIUM SERUM 3.8 MEQ/L (3.5-5.1); SODIUM LEVEL 142 MEQ/L (136-145); TROPONIN I < 0.02 NG/ML (< 0.10)
[2017-09-12] MEDS: PANTOPRAZOLE 40MG TAB (PROTONIX) PO (09:47)
[2017-09-12] MEDS: METOPROLOL TART 50 MG TAB PO ×2 (09:48→20:45)
[2017-09-12] MEDS: FUROSEMIDE 40 MG TAB PO (09:48)
[2017-09-12] MEDS: CLOPIDOGREL 75 MG TAB PO (09:54)
[2017-09-12] MEDS: METHOCARBAMOL 500 MG TAB PO ×3 (10:01→20:38)
[2017-09-12] MEDS: DULoxetine 20 MG CAP (CYMBALTA) PO (10:01)
[2017-09-12] MEDS: NORTRIPTYLINE 25 MG CAP PO ×3 (10:02→20:45)
[2017-09-12 12:15] LABS: INR 1.02; PROTHROMBIN TIME 13.5 SECONDS (12.4-14.5)
[2017-09-12] MEDS ORDERED: ISOVUE-370 76% 100ML VIAL (Q9967) As Ordered (13:09)
[2017-09-12] MEDS: SLF 3 ML SYR IV ×2 (13:58→20:45)
[2017-09-12] MEDS: ATORVASTATIN 20 MG TAB PO (20:38)
[2017-09-12] MEDS: zolPIDEM CR 6.25MG TABLET (AMBIEN CR) PO (21:10)
[2017-09-13] MEDS: NORCO, ANEXSIA 5/325MG TABLET (HYDROcodone/ACETAMINOPHEN) PO ×2 (00:04→08:05)
[2017-09-13] MEDS: MORPHINE 4 MG/ML 1ML VIAL (J2270) IV ×5 (00:04→20:38)
[2017-09-13 00:08] LABS: ANA (HEP2) Negative (.)
[2017-09-13 03:52] LABS: HEMATOCRIT 40.1 % (42.0-52.0); HEMOGLOBIN 13.6 g/dl (13.5-17.5); MEAN CORPUSCULAR HEMOGLOBIN 31.2 pg (27.0-33.0); MEAN CORPUSCULAR HGB CONC 33.9 g/dl (32.0-36.5); PLATELET COUNT, AUTOMATED 104 10^3/uL (150-450); RED BLOOD COUNT 4.36 10^6/uL (4.30-6.10); WHITE BLOOD COUNT 4.3 10^3/uL (4.0-10.0)
[2017-09-13 04:05] LABS: ANION GAP 7 MEQ/L (8-16); BLOOD UREA NITROGEN 15 MG/DL (7-18); CALCIUM LEVEL 8.9 MG/DL (8.5-10.1); CARBON DIOXIDE LEVEL 30 MEQ/L (21-32); CHLORIDE LEVEL 107 MEQ/L (98-107); CREATININE FOR GFR 0.97 MG/DL (0.70-1.30); GLOMERULAR FILTRATION RATE > 60.0 (>56); GLUCOSE, FASTING 101 MG/DL (70-100); POTASSIUM SERUM 3.9 MEQ/L (3.5-5.1); SODIUM LEVEL 144 MEQ/L (136-145)
[2017-09-13] MEDS: SLF 3 ML SYR IV ×3 (06:00→20:39)
[2017-09-13] MEDS: FUROSEMIDE 40 MG TAB PO (08:05)
[2017-09-13] MEDS: PANTOPRAZOLE 40MG TAB (PROTONIX) PO (08:05)
[2017-09-13] MEDS: CLOPIDOGREL 75 MG TAB PO (08:06)
[2017-09-13] MEDS: METHOCARBAMOL 500 MG TAB PO ×3 (08:06→20:36)
[2017-09-13] MEDS: NORTRIPTYLINE 25 MG CAP PO ×3 (08:06→20:36)
[2017-09-13] MEDS: METOPROLOL TART 50 MG TAB PO ×2 (08:06→20:37)
[2017-09-13] MEDS: DULoxetine 20 MG CAP (CYMBALTA) PO (08:06)
[2017-09-13 11:41] LABS: INR 1.03; PROTHROMBIN TIME 13.7 SECONDS (12.4-14.5)
[2017-09-13] MEDS: oxyCODONE 5MG TAB PO ×3 (14:35→23:40)
[2017-09-13] MEDS: zolPIDEM CR 6.25MG TABLET (AMBIEN CR) PO (20:36)
[2017-09-13] MEDS: ATORVASTATIN 20 MG TAB PO (20:36)
[2017-09-14 04:06] LABS: HEMATOCRIT 41.6 % (42.0-52.0); HEMOGLOBIN 14.2 g/dl (13.5-17.5); MEAN CORPUSCULAR HEMOGLOBIN 31.3 pg (27.0-33.0); MEAN CORPUSCULAR HGB CONC 34.1 g/dl (32.0-36.5); MEAN CORPUSCULAR VOLUME 91.6 fl (80.0-96.0); PLATELET COUNT, AUTOMATED 112 10^3/uL (150-450); RED BLOOD COUNT 4.54 10^6/uL (4.30-6.10); RED CELL DISTRIBUTION WIDTH 12.9 % (11.5-14.5); WHITE BLOOD COUNT 5.4 10^3/uL (4.0-10.0)
[2017-09-14 04:26] LABS: ANION GAP 6 MEQ/L (8-16); BLOOD UREA NITROGEN 15 MG/DL (7-18); CALCIUM LEVEL 8.7 MG/DL (8.5-10.1); CARBON DIOXIDE LEVEL 30 MEQ/L (21-32); CHLORIDE LEVEL 107 MEQ/L (98-107); GLOMERULAR FILTRATION RATE > 60.0 (>56); GLUCOSE, FASTING 104 MG/DL (70-100); POTASSIUM SERUM 3.7 MEQ/L (3.5-5.1); SODIUM LEVEL 143 MEQ/L (136-145)
[2017-09-14] MEDS: oxyCODONE 5MG TAB PO ×4 (05:00→21:01)
[2017-09-14] MEDS: SLF 3 ML SYR IV ×3 (05:26→21:00)
[2017-09-14] MEDS: MORPHINE 4 MG/ML 1ML VIAL (J2270) IV ×3 (06:51→20:13)
[2017-09-14] MEDS: METOPROLOL TART 50 MG TAB PO ×2 (08:40→21:00)
[2017-09-14] MEDS: DULoxetine 30 MG CAP (CYMBALTA) PO (08:40)
[2017-09-14] MEDS: FUROSEMIDE 40 MG TAB PO (08:40)
[2017-09-14] MEDS: CLOPIDOGREL 75 MG TAB PO (08:40)
[2017-09-14] MEDS: NORTRIPTYLINE 25 MG CAP PO ×3 (08:40→20:59)
[2017-09-14] MEDS: PANTOPRAZOLE 40MG TAB (PROTONIX) PO (08:40)
[2017-09-14] MEDS: METHOCARBAMOL 500 MG TAB PO ×3 (08:40→20:59)
[2017-09-14] MEDS: zolPIDEM CR 6.25MG TABLET (AMBIEN CR) PO (20:59)
[2017-09-14] MEDS: ATORVASTATIN 20 MG TAB PO (20:59)
[2017-09-15] MEDS: SLF 3 ML SYR IV ×3 (05:01→22:06)
[2017-09-15] MEDS: MORPHINE 4 MG/ML 1ML VIAL (J2270) IV ×3 (05:01→18:38)
[2017-09-15] MEDS: oxyCODONE 5MG TAB PO ×4 (06:51→20:31)
[2017-09-15 07:02] LABS: HEMATOCRIT 41.5 % (42.0-52.0); MEAN CORPUSCULAR HEMOGLOBIN 30.7 pg (27.0-33.0); MEAN CORPUSCULAR HGB CONC 33.7 g/dl (32.0-36.5); PLATELET COUNT, AUTOMATED 107 10^3/uL (150-450); RED BLOOD COUNT 4.56 10^6/uL (4.30-6.10); RED CELL DISTRIBUTION WIDTH 12.9 % (11.5-14.5); WHITE BLOOD COUNT 5.4 10^3/uL (4.0-10.0)
[2017-09-15 07:26] LABS: ANION GAP 7 MEQ/L (8-16); BLOOD UREA NITROGEN 18 MG/DL (7-18); CALCIUM LEVEL 9.1 MG/DL (8.5-10.1); CARBON DIOXIDE LEVEL 30 MEQ/L (21-32); CHLORIDE LEVEL 109 MEQ/L (98-107); CREATININE FOR GFR 1.01 MG/DL (0.70-1.30); GLOMERULAR FILTRATION RATE > 60.0 (>56); GLUCOSE, FASTING 112 MG/DL (70-100); POTASSIUM SERUM 4.2 MEQ/L (3.5-5.1); SODIUM LEVEL 146 MEQ/L (136-145)
[2017-09-15] MEDS: PANTOPRAZOLE 40MG TAB (PROTONIX) PO (08:26)
[2017-09-15] MEDS: NORTRIPTYLINE 25 MG CAP PO ×3 (08:26→22:04)
[2017-09-15] MEDS: CLOPIDOGREL 75 MG TAB PO (08:27)
[2017-09-15] MEDS: METHOCARBAMOL 500 MG TAB PO ×3 (08:27→22:04)
[2017-09-15] MEDS: DULoxetine 30 MG CAP (CYMBALTA) PO (08:27)
[2017-09-15] MEDS: FUROSEMIDE 40 MG TAB PO (08:27)
[2017-09-15] MEDS: METOPROLOL TART 50 MG TAB PO ×2 (11:00→22:04)
[2017-09-15] MEDS: ATORVASTATIN 20 MG TAB PO (22:01)
[2017-09-15] MEDS: zolPIDEM CR 6.25MG TABLET (AMBIEN CR) PO (22:05)
[2017-09-16] MEDS: oxyCODONE 5MG TAB PO ×3 (02:28→13:33)
[2017-09-16] MEDS: MORPHINE 4 MG/ML 1ML VIAL (J2270) IV ×5 (05:19→16:37)
[2017-09-16] MEDS: SLF 3 ML SYR IV ×4 (05:19→21:46)
[2017-09-16 07:20] LABS: HEMATOCRIT 42.8 % (42.0-52.0); HEMOGLOBIN 14.5 g/dl (13.5-17.5); MEAN CORPUSCULAR HEMOGLOBIN 31.4 pg (27.0-33.0); MEAN CORPUSCULAR HGB CONC 33.9 g/dl (32.0-36.5); MEAN CORPUSCULAR VOLUME 92.6 fl (80.0-96.0); PLATELET COUNT, AUTOMATED 116 10^3/uL (150-450); RED BLOOD COUNT 4.62 10^6/uL (4.30-6.10); RED CELL DISTRIBUTION WIDTH 13.1 % (11.5-14.5); WHITE BLOOD COUNT 5.5 10^3/uL (4.0-10.0)
[2017-09-16 07:36] LABS: ANION GAP 3 MEQ/L (8-16); BLOOD UREA NITROGEN 19 MG/DL (7-18); C REACTIVE PROTEIN QUANTITATIV 0.44 MG/DL (0.00-0.30); CALCIUM LEVEL 8.9 MG/DL (8.5-10.1); CARBON DIOXIDE LEVEL 33 MEQ/L (21-32); CHLORIDE LEVEL 107 MEQ/L (98-107); CREATININE FOR GFR 0.89 MG/DL (0.70-1.30); GLOMERULAR FILTRATION RATE > 60.0 (>56); GLUCOSE, FASTING 82 MG/DL (70-100); POTASSIUM SERUM 4.1 MEQ/L (3.5-5.1); SODIUM LEVEL 143 MEQ/L (136-145)
[2017-09-16 08:06] LABS: ERYTHROCYTE SEDIMENTATION RATE 9 mm/hr (0-20)
[2017-09-16] MEDS: DULoxetine 30 MG CAP (CYMBALTA) PO (09:18)
[2017-09-16] MEDS: NORTRIPTYLINE 25 MG CAP PO ×3 (09:18→21:44)
[2017-09-16] MEDS: CLOPIDOGREL 75 MG TAB PO (09:19)
[2017-09-16] MEDS: METHOCARBAMOL 500 MG TAB PO ×3 (09:19→21:43)
[2017-09-16] MEDS: METOPROLOL TART 50 MG TAB PO ×2 (09:19→21:44)
[2017-09-16] MEDS: PANTOPRAZOLE 40MG TAB (PROTONIX) PO (09:20)
[2017-09-16] MEDS: FUROSEMIDE 40 MG TAB PO (09:20)
[2017-09-16 09:54] LABS: VITAMIN B12 LEVEL 430 PG/ML (247-911)
[2017-09-16 10:24] LABS: DRVV SCREEN 44.3 SEC
[2017-09-16 10:25] LABS: PTT LUPUS TYPE ANTICOAG SCREEN 1.1 (0-1.2)
[2017-09-16] MEDS: ANUSOL HC CREAM 30GM TOP (10:39)
[2017-09-16] MEDS: LIDOCAINE 5% (LIDODERM) PATCH TD (18:06)
[2017-09-16] MEDS: **NOTE PATIENT COMMENT** MISC XX (21:00)
[2017-09-16] MEDS: CAPSAICIN 0.025% CR 60 GM TOP (21:00)
[2017-09-16] MEDS: ACETAMINOPHEN 500 MG TAB PO (21:00)
[2017-09-16] MEDS: zolPIDEM CR 6.25MG TABLET (AMBIEN CR) PO (21:43)
[2017-09-16] MEDS: ATORVASTATIN 20 MG TAB PO (21:44)
[2017-09-17] MEDS: SLF 3 ML SYR IV ×3 (05:20→20:44)
[2017-09-17 07:09] LABS: HEMATOCRIT 42.4 % (42.0-52.0); HEMOGLOBIN 14.6 g/dl (13.5-17.5); MEAN CORPUSCULAR HEMOGLOBIN 30.9 pg (27.0-33.0); MEAN CORPUSCULAR HGB CONC 34.4 g/dl (32.0-36.5); MEAN CORPUSCULAR VOLUME 89.6 fl (80.0-96.0); PLATELET COUNT, AUTOMATED 113 10^3/uL (150-450); RED BLOOD COUNT 4.73 10^6/uL (4.30-6.10); RED CELL DISTRIBUTION WIDTH 12.6 % (11.5-14.5); WHITE BLOOD COUNT 5.5 10^3/uL (4.0-10.0)
[2017-09-17 07:16] LABS: ANION GAP 6 MEQ/L (8-16); BLOOD UREA NITROGEN 18 MG/DL (7-18); CALCIUM LEVEL 8.9 MG/DL (8.5-10.1); CARBON DIOXIDE LEVEL 31 MEQ/L (21-32); CHLORIDE LEVEL 108 MEQ/L (98-107); GLOMERULAR FILTRATION RATE > 60.0 (>56); GLUCOSE, FASTING 98 MG/DL (70-100); POTASSIUM SERUM 3.9 MEQ/L (3.5-5.1); SODIUM LEVEL 145 MEQ/L (136-145)
[2017-09-17 07:22] LABS: ESTIMATED AVERAGE GLUCOSE 108 MG/DL (60-110); HEMOGLOBIN A1c 5.4 %
[2017-09-17] MEDS: NORTRIPTYLINE 25 MG CAP PO ×3 (08:55→20:31)
[2017-09-17] MEDS: CLOPIDOGREL 75 MG TAB PO (08:56)
[2017-09-17] MEDS: FUROSEMIDE 40 MG TAB PO (08:56)
[2017-09-17] MEDS: PANTOPRAZOLE 40MG TAB (PROTONIX) PO (08:56)
[2017-09-17] MEDS: DULoxetine 30 MG CAP (CYMBALTA) PO (08:56)
[2017-09-17] MEDS: ACETAMINOPHEN 500 MG TAB PO ×4 (08:56→20:33)
[2017-09-17] MEDS: METOPROLOL TART 50 MG TAB PO ×2 (08:57→20:32)
[2017-09-17] MEDS: METHOCARBAMOL 500 MG TAB PO ×3 (08:57→20:31)
[2017-09-17] MEDS: LIDOCAINE 5% (LIDODERM) PATCH TD (08:58)
[2017-09-17] MEDS: CAPSAICIN 0.025% CR 60 GM TOP ×4 (08:58→20:44)
[2017-09-17] MEDS: methylPREDNISolone INJ 125 MG/2 ML VIAL (J2930) IV (08:58)
[2017-09-17] MEDS: NAPROXEN 250 MG TAB PO (09:43)
[2017-09-17 11:40] LABS: HEPATITIS B SURFACE ANTIGEN NEGATIVE (NEGATIVE)
[2017-09-17 12:04] LABS: HEPATITIS C VIRUS ABY INDEX 0.1 INDEX (<0.8)
[2017-09-17] MEDS: zolPIDEM CR 6.25MG TABLET (AMBIEN CR) PO (20:31)
[2017-09-17] MEDS: ATORVASTATIN 20 MG TAB PO (20:32)
[2017-09-17] MEDS: **NOTE PATIENT COMMENT** MISC XX (20:44)
[2017-09-18] MEDS: SLF 3 ML SYR IV ×4 (05:38→22:08)
[2017-09-18 07:09] LABS: HEMATOCRIT 42.7 % (42.0-52.0); HEMOGLOBIN 14.7 g/dl (13.5-17.5); MEAN CORPUSCULAR HEMOGLOBIN 30.8 pg (27.0-33.0); MEAN CORPUSCULAR HGB CONC 34.4 g/dl (32.0-36.5); MEAN CORPUSCULAR VOLUME 89.5 fl (80.0-96.0); PLATELET COUNT, AUTOMATED 115 10^3/uL (150-450); RED BLOOD COUNT 4.77 10^6/uL (4.30-6.10); RED CELL DISTRIBUTION WIDTH 12.8 % (11.5-14.5); WHITE BLOOD COUNT 5.4 10^3/uL (4.0-10.0)
[2017-09-18 07:32] LABS: ANION GAP 5 MEQ/L (8-16); BLOOD UREA NITROGEN 19 MG/DL (7-18); CALCIUM LEVEL 8.9 MG/DL (8.5-10.1); CARBON DIOXIDE LEVEL 31 MEQ/L (21-32); CHLORIDE LEVEL 107 MEQ/L (98-107); CREATININE FOR GFR 0.81 MG/DL (0.70-1.30); GLOMERULAR FILTRATION RATE > 60.0 (>56); GLUCOSE, FASTING 91 MG/DL (70-100); POTASSIUM SERUM 3.7 MEQ/L (3.5-5.1); SODIUM LEVEL 143 MEQ/L (136-145)
[2017-09-18] MEDS: DULoxetine 30 MG CAP (CYMBALTA) PO (09:09)
[2017-09-18] MEDS: ACETAMINOPHEN 500 MG TAB PO ×4 (09:09→22:06)
[2017-09-18] MEDS: NORTRIPTYLINE 25 MG CAP PO ×3 (09:09→22:07)
[2017-09-18] MEDS: METHOCARBAMOL 500 MG TAB PO ×3 (09:09→22:06)
[2017-09-18] MEDS: METOPROLOL TART 50 MG TAB PO ×2 (09:10→22:07)
[2017-09-18] MEDS: LIDOCAINE 5% (LIDODERM) PATCH TD ×2 (09:10→15:47)
[2017-09-18] MEDS: CLOPIDOGREL 75 MG TAB PO (09:10)
[2017-09-18] MEDS: FUROSEMIDE 40 MG TAB PO (09:10)
[2017-09-18] MEDS: PANTOPRAZOLE 40MG TAB (PROTONIX) PO (09:10)
[2017-09-18] MEDS: CAPSAICIN 0.025% CR 60 GM TOP ×4 (09:11→21:00)
[2017-09-18] MEDS: methylPREDNISolone INJ 125 MG/2 ML VIAL (J2930) IV (09:11)
[2017-09-18] MEDS ORDERED: ANEXSIA, NORCO 7.5MG/325MG TABLET(HYDROCODONE/APAP) PO (12:00)
[2017-09-18] MEDS: ANEXSIA, NORCO 7.5MG/325MG TABLET(HYDROCODONE/APAP) PO ×2 (12:33→18:46)
[2017-09-18] MEDS: GABAPENTIN 300 MG CAP PO ×2 (15:46→22:06)
[2017-09-18] MEDS ORDERED: **NOTE PATIENT COMMENT** MISC XX (21:00)
[2017-09-18] MEDS: **NOTE PATIENT COMMENT** MISC XX (21:00)
[2017-09-18] MEDS: ATORVASTATIN 20 MG TAB PO (22:06)
[2017-09-18] MEDS: zolPIDEM CR 6.25MG TABLET (AMBIEN CR) PO (22:07)
[2017-09-19 00:07] LABS: ANCA-ATYPICAL <1:20 titer (Neg:<1:20); CYTOPLASMIC NEUTROP AB ANCA-C <1:20 titer (Neg:<1:20); PERINUCLEAR AB ANCA-P <1:20 titer (Neg:<1:20)
[2017-09-19] MEDS: ANEXSIA, NORCO 7.5MG/325MG TABLET(HYDROCODONE/APAP) PO ×3 (02:43→15:13)
[2017-09-19] MEDS: SLF 3 ML SYR IV ×2 (06:09→13:56)
[2017-09-19 06:25] LABS: HEMOGLOBIN 14.8 g/dl (13.5-17.5); MEAN CORPUSCULAR HGB CONC 35.2 g/dl (32.0-36.5); MEAN CORPUSCULAR VOLUME 87.9 fl (80.0-96.0); PLATELET COUNT, AUTOMATED 122 10^3/uL (150-450); RED BLOOD COUNT 4.78 10^6/uL (4.30-6.10); RED CELL DISTRIBUTION WIDTH 12.6 % (11.5-14.5); WHITE BLOOD COUNT 10.8 10^3/uL (4.0-10.0)
[2017-09-19 06:40] LABS: ANION GAP 7 MEQ/L (8-16); BLOOD UREA NITROGEN 22 MG/DL (7-18); CALCIUM LEVEL 9.2 MG/DL (8.5-10.1); CARBON DIOXIDE LEVEL 29 MEQ/L (21-32); CHLORIDE LEVEL 107 MEQ/L (98-107); CREATININE FOR GFR 0.82 MG/DL (0.70-1.30); GLOMERULAR FILTRATION RATE > 60.0 (>56); GLUCOSE, FASTING 105 MG/DL (70-100); SODIUM LEVEL 143 MEQ/L (136-145)
[2017-09-19] MEDS: ACETAMINOPHEN 500 MG TAB PO ×3 (09:00→12:56)
[2017-09-19] MEDS: DULoxetine 30 MG CAP (CYMBALTA) PO (09:08)
[2017-09-19] MEDS: PANTOPRAZOLE 40MG TAB (PROTONIX) PO (09:09)
[2017-09-19] MEDS: NORTRIPTYLINE 25 MG CAP PO ×2 (09:09→15:11)
[2017-09-19] MEDS: METHOCARBAMOL 500 MG TAB PO ×2 (09:09→15:12)
[2017-09-19] MEDS: LIDOCAINE 5% (LIDODERM) PATCH TD (09:09)
[2017-09-19] MEDS: methylPREDNISolone INJ 125 MG/2 ML VIAL (J2930) IV (09:10)
[2017-09-19] MEDS: FUROSEMIDE 40 MG TAB PO (09:10)
[2017-09-19] MEDS: CLOPIDOGREL 75 MG TAB PO (09:10)
[2017-09-19] MEDS: METOPROLOL TART 50 MG TAB PO (09:10)
[2017-09-19] MEDS: CAPSAICIN 0.025% CR 60 GM TOP ×2 (09:10→12:57)
[2017-09-19] MEDS: GABAPENTIN 300 MG CAP PO ×2 (09:10→15:11)
== END 2017-09-19 15:15 | disposition home or self-care (01) | DRG 300 ==
LOC: M MS5PR 09-14 17:45 → M PCU 13:15
DX: I74.4 Embolism and thrombosis of arteries of extremities, unspecified (principal); Z68.41 Body mass index [BMI] 40.0-44.9, adult; L97.529 Non-pressure chronic ulcer of other part of left foot with unspecified severity; G60.9 Hereditary and idiopathic neuropathy, unspecified; I11.9 Hypertensive heart disease without heart failure; G47.33 Obstructive sleep apnea (adult) (pediatric); L97.519 Non-pressure chronic ulcer of other part of right foot with unspecified severity; I48.0 Paroxysmal atrial fibrillation; I25.10 Atherosclerotic heart disease of native coronary artery without angina pectoris; H70.11 Chronic mastoiditis, right ear; I99.8 Other disorder of circulatory system; M47.26 Other spondylosis with radiculopathy, lumbar region; K21.9 Gastro-esophageal reflux disease without esophagitis; E78.2 Mixed hyperlipidemia; Z95.5 Presence of coronary angioplasty implant and graft; Z95.810 Presence of automatic (implantable) cardiac defibrillator; Z99.89 Dependence on other enabling machines and devices; Z88.0 Allergy status to penicillin; Z88.8 Allergy status to other drugs, medicaments and biological substances; Z79.02 Long term (current) use of antithrombotics/antiplatelets; Z79.899 Other long term (current) drug therapy; I25.2 Old myocardial infarction; E66.9 Obesity, unspecified

== ENCOUNTER → 2020-11-22 | Outpatient (REF) | payer OTHER ==
[~2020-11-22] MED LIST changes: +ATOR40TA75 PO; +CLOP75TA2 PO; +DULO-34 PO; +DULO1CAP6 PO; +FISH100049 PO; +FURO40TA2 PO; +GABA-282 PO; +GABA-283 PO; +GABA600T4 PO; +HYDR-3719 PO; +LIDO5TD TD; +LISI10TA22 PO; +LOPR1TAB6 PO; +LOPR1TAB7 PO; +METH-1164 PO; +NORC1TAB5 PO; +NORT50CA PO; -ONDANSETRON 4MG/2ML VIAL (J2405) IV; +PANT40TA29 PO; -PERCOCET 5MG/325MG TAB PO; +PRIL20TA2 PO; +ZOLP12.518 PO; -zolPIDEM TARTRATE 10MG TAB PO
[2020-11-22 12:56] LABS: BASO % 0.5 % (0.0-1.0); EOS # 0.1 10^3/uL (0.0-0.5); EOS % 2.1 % (0.0-3.0); HEMATOCRIT 38.9 % (42.0-52.0); HEMOGLOBIN 12.8 g/dl (13.5-17.5); LYMPH # 1.2 10^3/uL (1.5-5.0); LYMPH % 20.6 % (24.0-44.0); MEAN CORPUSCULAR HGB CONC 32.9 g/dl (32.0-36.5); MEAN CORPUSCULAR VOLUME 91.1 fl (80.0-96.0); MONO # 0.4 10^3/uL (0.0-0.8); MONO % 7.2 % (2.0-8.0); NEUTROPHILS # 4.1 10^3/uL (1.5-8.5); NEUTROPHILS % 69.4 % (36.0-66.0); PLATELET COUNT, AUTOMATED 122 10^3/uL (150-450); RED BLOOD COUNT 4.27 10^6/uL (4.30-6.10); WHITE BLOOD COUNT 5.8 10^3/uL (4.0-10.0)
[2020-11-22 19:04] LABS: ALT/SGPT 27 U/L (12-78); BILIRUBIN,TOTAL 0.4 MG/DL (0.2-1.0); BLOOD UREA NITROGEN 19 MG/DL (7-18); CARBON DIOXIDE LEVEL 28 MEQ/L (21-32); CHLORIDE LEVEL 105 MEQ/L (98-107); CHOLESTEROL LEVEL 100 MG/DL (<200); CHOLESTEROL RISK RATIO 3.571 (<5); CPK CREATINE PHOSPHOKINASE 112 U/L (39-308); CREATININE FOR GFR 0.84 MG/DL (0.70-1.30); FREE T4 1.05 NG/DL (0.76-1.46); GLOMERULAR FILTRATION RATE > 60.0 (>49); GLUCOSE, FASTING 92 MG/DL (70-100); HDL CHOLESTEROL 28 MG/DL (>40); LDL CHOLESTEROL 41 MG/DL (<100); NON-HDL-C 72 MG/DL; SODIUM LEVEL 141 MEQ/L (136-145); TRIGLYCERIDES LEVEL 157 MG/DL (<150)
[2020-11-22 19:13] LABS: HEMOGLOBIN A1c 4.8 %
== END ==
LOC: M SFHCPLAZ 11:59
PROVIDERS: ATTEND Physician Assistant Medical
DX: E78.2 Mixed hyperlipidemia (principal); I10 Essential (primary) hypertension; F32.9 Major depressive disorder, single episode, unspecified; E66.9 Obesity, unspecified; Z79.899 Other long term (current) drug therapy

== ENCOUNTER → 2020-11-22 | Outpatient (CLI) | payer OTHER ==
--- NOTE | 2020-11-25 00:48 | ECWPNPC ---
PATIENT NAME: JO ANN MI : 1960 GENDER: MALE VISIT DATE: 11/22/2020 DISCHARGE DATE: 11/22/20 1354 VISIT LOCKED DATE TIME: PHYSICIAN: [facility] PHYSICIAN PAGER NO: ACTIVE RESOURCE: [facility] REASON FOR APPOINTMENT 1. CHRONIC BACK PAIN HISTORY OF PRESENT ILLNESS DEPRESSION SCREENING: PHQ-9 LITTLE INTEREST OR PLEASURE IN DOING THINGSNEARLY EVERY DAY FEELING DOWN, DEPRESSED, OR HOPELESSNEARLY EVERY DAY TROUBLE FALLING OR STAYING ASLEEP, OR SLEEPING TOO MUCHNEARLY EVERY DAY FEELING TIRED OR HAVING LITTLE ENERGYNOT AT ALL POOR APPETITE OR OVEREATING NOT AT ALL FEELING BAD ABOUT YOURSELF-OR THAT YOU ARE A FAILURE OR HAVE LET YOURSELF OR YOUR FAMILY DOWN NOT AT ALL TROUBLE CONCENTRATING ON THINGS, SUCH READING THE NEWSPAPER OR WATCHING TELEVISION SEVERAL DAYS MOVING OR SPEAKING SO SLOWLY THAT OTHER PEOPLE COULD HAVE NOTICED. OR THE OPPOSITE- BEING SO FIDGETY OR RESTLESS THAT YOU HAVE BEEN MOVING AROUND A LOT MORE THAN USUALNOT AT ALL THOUGHTS THAT YOU WOULD BE BETTER OFF , OR OF HURTING YOURSELF IN SOME WAY?NOT AT ALL TOTAL SCORE:10 INTERPRETATIONMODERATE DEPRESSION PHQ-2 (2015 EDITION) LITTLE INTEREST OR PLEASURE IN DOING THINGS?NEARLY EVERY DAY FEELING DOWN, DEPRESSED, OR HOPELESS?NEARLY EVERY DAY TOTAL SCORE6 GENERAL: PLEASANT 60-YEAR-OLD GENTLEMAN REFERRED BY PRIMARY CARE FOR CHRONIC LOW BACK PAIN WITH A HISTORY OF POSTLAMINECTOMY PAIN SYNDROME. PAIN BEGAN SEVERAL YEARS AGO AFTER TAKING CARE OF HIS MOTHER WHO HE HAD TO LIFT FREQUENTLY. ENDED UP HAVING LUMBAR SURGERY THAT HELPED SOMEWHAT. OVER THE PAST 5 YEARS PAIN HAS BEEN OUT OF CONTROL. HAS BEEN SEEN BY PAIN MANAGEMENT IN [place] AND IN [place]. HAS TRIED MULTIPLE DIFFERENT MEDICATIONS AND INJECTIONS IN THE PAST WITHOUT IMPROVEMENT IN PAIN. HISTORY OF MULTIPLE COMORBIDITIES. HAS CARDIAC PACEMAKER/DEFIBRILLATOR. ON CHRONIC PLAVIX THERAPY. HISTORY OF NEUROPATHY. NO RECENT IMAGING OF LUMBAR SPINE IS AVAILABLE. HE IS UNABLE TO HAVE MRI DUE TO PACEMAKER. DENIES BOWEL OR BLADDER INCONTINENCE. DENIES RECENT FEVER OR ILLNESS OR SUDDEN WEIGHT LOSS. -. FALL RISK SCREENING: SCREENING : NO FALLS REPORTED IN THE LAST YEAR. PAIN SCREENING: PATIENT HAS A COMPLAINT OF ACUTE OR CHRONIC PAIN :YES LOCATION OF PAIN:LOW BACK INTENSITY OF PAIN (SCALE OF 1 TO 10):8 WHAT DOES YOUR PAIN FEEL LIKE:ACHING, THROBBING, SHOOTING DURATION:CONTINOUS, CONSTANT, ALL DAY PAIN IS INCREASED BY:ACTIVITIES, PROLONGED STANDING PAIN IS DECREASED BY:SITTING NURSING NOTE: -. PAIN CENTER INTAKE QUESTIONS: DO YOU HAVE A HISTORY OF MRSA? :NO NOT SURE DO YOU TAKE A BLOOD THINNERS? :YES PLAVIX 75 MG DO YOU HAVE ANY BLEEDING DISORDERS? :NO ANY NEW NUMBNESS OR WEAKNESS IN YOUR LEGS OR ARMS? :NO ANY PACEMAKER,DEFIBRILLATOR, OR DORSAL COLUMN STIMULATOR? :NO PACEMAKER OR DEFIBRILLATOR DO YOU HAVE ANY RASHES OR OPEN SORES? :NO ARE YOU ALLERGIC TO IV DYE? :NO ARE YOU DIABETIC? :NO ANY NEW PROBLEMS WITH YOUR MEDICATIONS? :NO HAVE YOU RECEIVED A VACCINE IN THE PAST 30 DAYS? :NO DO YOU PLAN TO RECEIVE A VACCINE IN THE NEXT 21 DAYS? :NO DO YOU NEED ANY PRESCRIPTION? :NO DO YOU TAKE ANY IMMUNOSUPPRESSIVE MEDICATIONS? :NO IS THERE A CHANCE YOU COULD BE ? :NO ARE YOU BREAST FEEDING? :NO CURRENT MEDICATIONS TAKING LASIX 40 MG TABLET 1.5 TABLET ORALLY DAILY TAKING PANTOPRAZOLE SODIUM 40 MG TABLET DELAYED RELEASE 1 TABLET ORALLY ONCE A DAY TAKING FENOFIBRATE 160 MG TABLET 1 TABLET ORALLY ONCE A DAY TAKING AMITRIPTYLINE HCL 100 MG TABLET 1 TABLET AT BEDTIME ORALLY ONCE A DAY TAKING DULOXETINE HCL 60 MG CAPSULE DELAYED RELEASE PARTICLES 1 CAPSULE ORALLY ONCE A DAY TAKING METOPROLOL TARTRATE 25 MG TABLET 1 TABLET WITH FOOD ORALLY TWICE A DAY TAKING FENOFIBRATE 160 MG TABLET 1 TABLET ORALLY ONCE A DAY TAKING BACLOFEN 10 MG TABLET 1 TABLET NEEDED ORALLY THREE TIMES DAILY TAKING PROTONIX 40 MG TABLET DELAYED RELEASE 1 TABLET ORALLY ONCE A DAY TAKING ZOLPIDEM TARTRATE ER 12.5 MG TABLET EXTENDED RELEASE 1 TABLET AT BEDTIME NEEDED ORALLY ONCE A DAY TAKING MAY HAVE - - CPAP MACHINE AND SUPPLIES DX CODE G47.33 BEDTIME USE TAKING AMITRIPTYLINE HCL 100 MG TABLET 1 TABLET AT BEDTIME ORALLY ONCE A DAY TAKING BUPRENORPHINE HCL 2 MG TABLET SUBLINGUAL 1 TABLET UNDER THE TONGUE AND ALLOW TO DISSOLVE SUBLINGUAL BID TAKING PLAVIX 75 MG TABLET 1 TABLET ORALLY ONCE A DAY TAKING ATORVASTATIN CALCIUM 40 MG TABLET 1 TABLET ORALLY ONCE A DAY AT BEDTIME TAKING BELBUCA 150 MCG FILM 1 FILM TO THE GUM BUCALLY EVERY 12 HRS TAKING BUTRANS 20 MCG/HR PATCH WEEKLY 1 PATCH TO SKIN TRANSDERMAL TAKING HYDROCODONE-ACETAMINOPHEN 7.5-325 MG TABLET 1 TABLET NEEDED ORALLY EVERY 6 HRS TAKING BUPRENORPHINE HCL 2 MG TABLET SUBLINGUAL 1 TABLET UNDER THE TONGUE AND ALLOW TO DISSOLVE SUBLINGUAL BID TAKING TRAZODONE HCL 100 MG TABLET 1 TABLET AT BEDTIME ORALLY ONCE A DAY NOT-TAKING GABAPENTIN 800 MG TABLET 1 CAPSULE ORALLY THREE TIMES A DAY MEDICATION LIST REVIEWED AND RECONCILED WITH THE PATIENT PAST MEDICAL HISTORY CAD- DC [place] 1985, CABG 2013, STENTS IN 2009, ICD 2013 C CHF; 2016 WAS @ [facility] IN [place] C ANOTHER BLOCKED ARTERY THEN HTN-SINCE HIS 20'S HL ON LIPITOR SINCE S NEPTHROLITHIASIS INSOMNIA FOR YEARS NOCTURNAL HYPOXIA GERD-WAS ON PRILOSEC X10 YRS. OBESITY [address] [place], [place] DOWN TO 279 TODAY 6MOS. LATER IN [place], [place] LUMBAR DIS.-LAST MRI 2014 @ [facility] IN [place], [place]; S/P LUMB. LAMINECTOMY DEPRESSION STEPHANIE ON CPAP-SLEEP STUDY 05/2016 SYNCOPE-CT OF HEAD NEG. 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, R EAR ALSO H/O MRSA INFECTION IN [address] MARIAN REEVES PNEUMONIA WHILE IN [place] 3WEEKS HOSPITALIZED ALLERGIES PENICILLIN (FOR ALLERGIES USE ONLY): HIVES - ALLERGY NEUBANE: BEHAVIOR - ALLERGY CELEBREX: ANAPHYLAXIS SURGICAL HISTORY CABG- [facility] 2012 BACK SURGERY-[facility] 2012 CARPAL TUNNEL SURGERY BILATERAL 2006 LEFT SIDE HERNIA SURGERY PACEMAKER/ICD 2013 RIGHT COCHLEAR IMPLANT BAHA 02/2009 R RADICAL MASTOIDECTOMY 09/2008 FAMILY HISTORY FATHER: 60 YRS, FATHER T 62 OF PROSTATE CANCER, DIAGNOSED WITH OTHER MALIGNANT NEOPLASM OF UNSPECIFIED SITE MOTHER: 80 YRS, OTHER MALIGNANT NEOPLASM OF UNSPECIFIED SITE SIBLINGS: ALIVE SON(S): ALIVE DAUGHTER(S): ALIVE 2 BROTHER(S) - HEALTHY. 1 SON(S) , 2 DAUGHTER(S) - HEALTHY. 2 BRO[employer]S [employer] 58 C EPILEPSY, 52 C HTN 2 BRO.S [employer] 58 C EPILEPSY, 52 C HTN. SOCIAL HISTORY GENERAL: TOBACCO USE ARE YOU A:NONSMOKER LATEX QUESTIONNAIRE LATEX ALLERGY : HAVE YOU EVER DEVELOPED ANY TYPE OF REACTION AFTER HANDLING LATEX PRODUCTS SUCH RUBBER GLOVES, CONDOMS, DIAPHRAGMS, BALLOONS, SOCKS, OR UNDERWEAR?NO LATEX ALLERGY : HAVE YOU EVER DEVELOPED ANY TYPE OF REACTION DURING OR AFTER DENTAL APPOINTMENT, VAGINAL/RECTAL EXAMINATION, SURGICAL PROCEDURE, OR ANY OTHER EXPOSURE?NO LATEX RISK : HAVE YOU EVER HAD ANY DIFFICULTY BREATHING OR HIVES AFTER EATING OR HANDLING ANY FRUITS, OR VEGETABLES; SUCH KIWI, BANANAS, STONE FRUITS, OR CHESTNUTSYES - PLEASE INDICATE : GRAPEFRUIST LATEX RISK : DO YOU HAVE A PREVIOUS PERSONAL HISTORY OF MORE THAN NINE SURGERIES, SPINA BIFIDA, OR REPEATED CATHERIZATIONS? NO LATEX RISK : ARE YOU FREQUENTLY EXPOSED TO LATEX PRODUCTS IN YOUR OCCUPATION?NO DATE ASKED : 11/22/2020 ALCOHOL USE: NO. LUNG CANCER SCREENING SMOKING STATUS:FORMER SMOKER IS THE PATIENT BETWEEN THE AGE OF 55 AND 77? 2PPD UNTIL AGE 37 ALCOHOL SCREENING DID YOU HAVE A DRINK CONTAINING ALCOHOL IN THE PAST YEAR?NO POINTS0 INTERPRETATIONNEGATIVE RECREATIONAL DRUG USE DRUG USE?YES POT WHEN IN TEENS CAFFEINE CAFFEINE USE?YES 2 CUPS COFFEE DAILY SEXUAL HX HAD SEX IN THE LAST 12 MONTHS (VAGINAL, ORAL, OR ANAL)?NO HAVE YOU EVER HAD AN STD?NO HIV / HEP-C SCREENING HIV TEST OFFERED TO PATIENT:YES DATE OFFERED:11/15/2016 TEST ACCEPTED:NO HEP-C TEST OFFERED TO PATIENT:YES DATE OFFERED:11/15/2016 REASON:PATIENT DECLINED TEST ACCEPTED:NO REASON:PATIENT DECLINED HOLINESS [id number] SHINTO LANGUAGE LANGUAGES SPOKEN:POLISH EDUCATION LEVEL OF EDUCATION:HIGH SCHOOL TECHNICAL TRAINING FOR WORK LEARNING BARRIERS / SPECIAL NEEDS CHANGE FROM LAST VISIT?NO BARRIERS TO LEARNING?NO HEARING IMPAIRED?YES 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 DIET: LOW FAT, LOW CHOLESTEROL. EXERCISE: [facility]. MARITAL STATUS: SINGLE, SINGLE, X35YRS. OTHERS AT HOME: SON & [id number] & 3YO GRANDD.. HOSPITALIZATION/MAJOR DIAGNOSTIC PROCEDURE SEE ABOVE ISCHEMIA OF FEET ([facility]) 06/15/2017 CAD, ORTHOSTATIC HYPOTENSION 07/10/2017 BILAT FOOT PAIN WITH PRESUMED EMBOLIC/PAD 09/11/2017 REVIEW OF SYSTEMS CONSTITUTIONAL: ANY RECENT FEVER NO . CHILLS NO . WEIGHT CHANGE OF UNKNOWN REASONS NO . GASTROENTEROLOGY: NEW UNEXPLAINABLE CHANGES IN BOWEL CONTROL NO . CONSTIPATION NO . GENITOURINARY: ANY NEW CHANGE IN BLADDER CONTROL? NO . NEUROLOGY: NEW ONSET DIZZINESS OR NEUROLOGICAL CHANGES NOT MENTIONED NO . NEW NUMBNESS OR PAIN PATTERNS NOT MENTIONED AND PERTINENT TO TODAY'S VISIT NO . CARDIOLOGY: NEW CHEST PRESSURE NO . PATIENT DENIES NO . RESPIRATORY: UNEXPLAINABLE COUGH NO . NEW SHORTNESS OF BREATH NO . VITAL SIGNS WT 207.2 LBS, HT 66 IN, BMI 33.41 INDEX, BP 116/67 MM HG, HR 56 /MIN, RR 18 /MIN, TEMP 97.9 F, OXYGEN SAT % 99%, SAFE IN ENV? (Y/N) YES, NA INITIALS IN 12:54T.MOLLY ROLAND. EXAMINATION GENERAL EXAMINATION: GENERALNO ACUTE DISTRESS, WELL NOURISHED AND HYDRATED. PSYCHAPPROPRIATE MOOD AND AFFECT . FACE:UNREMARKABLE. NECK:NO LYMPHADENOPATHY, SUPPLE. LUNGS:CLEAR TO AUSCULTATION BILATERALLY, NO WHEEZES, RHONCHI, RALES. HEART:NO MURMURS, REGULAR RATE AND RHYTHM. MUSCULOSKELETAL:WEAKNESS NOTED OVER LOWER EXTREMITIES RIGHT GREATER THAN LEFT. LUMBAR:WELL-HEALED SURGICAL SCAR NOTED. MILD TENDERNESS NOTED OVER THE SACROILIAC JOINT AND LUMBAR PARASPINAL REGION. . NEUROLOGIC EXAM:STATES HE CAN'T FEEL LIGHT TOUCH IN HIS LOWER EXTREMITIES. ASSESSMENTS SACROILIITIS - M46.1 (PRIMARY) POSTLAMINECTOMY SYNDROME - M96.1 TREATMENT SACROILIITIS STOP BUPRENORPHINE HCL TABLET SUBLINGUAL, 2 MG, 1 TABLET UNDER THE TONGUE AND ALLOW TO DISSOLVE, SUBLINGUAL, BID START PERCOCET TABLET, 5-325 MG, 1 TABLET NEEDED, ORALLY, EVERY 6 HRS PRN FOR SEVERE PAIN MDD4 #45 TAB SHOULD LAST 30 DAYS, 30 DAYS, 45 [facility] LS SPINE W/O FOLL BY [id number] NOTES: ISTOP REGISTRY REVIEWED AND DEMONSTRATES COMPLLIANCE. , [facility] NARCOTIC AGREEMENT WAS REVIEWED AND SIGNED TODAY BY THE PATIENT. SEE ATTACHED DOCUMENT FOR FULL DETAILS; SPECIFIC ISSUES WERE REVIEWED: 1) KEEP PAIN MEDS IN THEIR ORIGINAL BOTTLES AND ANY WEEKLY PLANNERS ARE TO BE BROUGHT TO THE PAIN CENTER AT EVERY VISIT. 2) THE PATIENT IS NOT TO INCREASE DOSING OR TIMING OF THEIR PAIN MEDICATION WITHOUT SPECIFIC DIRECTION OF THEIR PAIN CENTERPROVIDER (NOT ER OR OTHER PROVIDERS). 3) ALL PAIN MEDS ARE TO BE KEPT SECURED, IN A LOCKED BOX. 4) NO PAIN MEDS ARE TO BE SHARED WITH ANY OTHER PERSON FOR ANY REASON. 5) NO PAIN MEDS MAY BE TAKEN FROM ANY FRIENDS OR RELATIVES FOR ANY REASON 6) NO MEDS OR SUBSTANCES WHICH ARE NOT LEGAL ARE TO BE USED- NO MARIJUANA, NO COCAINE, AMPHETAMINES, HEROIN, OR OTHERS ARE EVER TO BE USED. 7)URINE TESTING IS DONE TO ACCOUNT FOR MEDS AND SUBSTANCES BEING TAKEN AND WILL BE DONE RANDOMLY. , RISKS OF NARCOTIC/OPIOD MEDICATIONS INCLUDES BUT IS NOT LIMITED TO RISK OF DEPENDANCE/DEVELOPMENT OF ADDICTION, MOOD DISTURBANCE AND DEPRESSION, OSTEOPOROSIS, HORMONAL AND LABIDAL CHANGES, RESPIRATORY DEPRESSION AND . PATIENT IS ADVISED NOT TO DRIVE OR DRINK ALCOHOL WHILE ON THESE MEDICATIONS PRINTED INFORMATION ON NEW MEDICATION FOR PATIENT, KELSEY ROLAND. PROCEDURE CODES FA211 ESTABILISHED PATIENT [facility] CHARGE DISPOSITION & COMMUNICATION FOLLOW UP 6 WEEKS (REASON: REVIEW CT/MED MGMNT) ELECTRONICALLY SIGNED BY LEON CHASE ON 11/24/2020 AT 08:30 AM EDT DISCLAIMER : THIS IS A VISIT SUMMARY EXTRACTED FROM THE [employer] CHART. IT IS NOT A COPY OF THE [employer] PROGRESS NOTE. CHAPITO
== END ==
LOC: M PAIN 13:00
PROVIDERS: ATTEND Nurse Practitioner Family
DX: M46.1 Sacroiliitis, not elsewhere classified (principal); M96.1 Postlaminectomy syndrome, not elsewhere classified; I25.2 Old myocardial infarction; K21.9 Gastro-esophageal reflux disease without esophagitis; G47.33 Obstructive sleep apnea (adult) (pediatric); Z86.14 Personal history of Methicillin resistant Staphylococcus aureus infection; Z86.59 Personal history of other mental and behavioral disorders; Z95.0 Presence of cardiac pacemaker; Z88.0 Allergy status to penicillin; Z88.8 Allergy status to other drugs, medicaments and biological substances; Z79.01 Long term (current) use of anticoagulants; Z79.891 Long term (current) use of opiate analgesic; Z79.899 Other long term (current) drug therapy; E78.2 Mixed hyperlipidemia; I10 Essential (primary) hypertension; F32.9 Major depressive disorder, single episode, unspecified; E66.9 Obesity, unspecified
CPT/HCPCS: 36415; 80053; 80061; 82550; 83036; 84439; 84443; 85025; G0463

== ENCOUNTER → 2020-11-29 | Outpatient (CLI) | payer OTHER ==
[~2020-11-29] MED LIST changes: +ISOVUE-370 76% 100ML VIAL As Ordered ONE
--- NOTE | 2020-11-29 18:04 | REPVR ---
PROCEDURE INFORMATION: Exam: CT Lumbar Spine Without and With Contrast Exam date and time: 11/29/2020 5:07 PM Age: 60 years old Clinical indication: Other: Post laminectomy syndrome TECHNIQUE: Imaging protocol: Computed tomography images of the lumbar spine without and with intravenous contrast. Radiation optimization: All CT scans at this facility use at least one of these dose optimization techniques: automated exposure control; mA and/or kV adjustment per patient size (includes targeted exams where dose is matched to clinical indication); or iterative reconstruction. Contrast material: ISOVUE 370; Contrast volume: 75 ml; Contrast route: INTRAVENOUS (IV); COMPARISON: CT Spine, lumbar w/o contrast 09/17/2017 8:06 AM FINDINGS: Vertebrae: 5 mm of grade 1 degenerative anterolisthesis of L4 on L5 and L5 on S1. 2 mm of degenerative retrolisthesis of L5 on S1. Exaggeration of the lumbar lordosis. Unchanged alignment compared to the prior study. No acute fracture seen. L1-L2: No significant disc protrusion. No severe spinal canal stenosis. No significant neural foraminal narrowing. L2-L3: No significant interval change. Mild disc bulge as well as moderate facet arthropathy and ligamentum flavum buckling. Mild central spinal canal and right neural foraminal stenoses. L3-L4: No significant interval change. The central spinal canal is decompressed posteriorly by laminectomy. Mild foraminal bulging disc and severe facet arthropathy causing moderate bilateral neural foraminal stenoses. L4-L5: Mild posterior disc height loss at L4-L5, as before. Mild multilevel prevertebral spondylosis. Small thoracolumbar endplate Schmorl's nodes. No significant interval change. Anterolisthesis with pseudobulging of the intervertebral disc. Facet arthropathy is severe. Laminectomy prevents high-grade central spinal canal stenosis. There is a residual component of central spinal canal stenosis. Moderate bilateral neural foraminal stenoses. L5-S1: No significant interval change. Mild disc bulge as well as moderate to severe facet arthropathy. No significant central spinal canal stenosis. Moderate right and [id number] left neural foraminal stenoses. Kidneys and ureters: The left kidney demonstrates a nonobstructing calculus. Vasculature: The aorta demonstrates atherosclerosis. Soft tissues: Unremarkable. A stable left adrenal nodule measures 2.6 x 2.3 cm, likely an adrenal adenoma. IMPRESSION: 1. No significant interval change. 2. Mild central spinal canal stenosis at L2-L3. 3. Neural foraminal stenoses again demonstrated from L3-L4 through L5-S1. 4. Advanced lumbar facet arthropathy, as before. Electronically signed by: Mary Jane Franco On 11/29/2020 18:04:14 PM
== END ==
LOC: M RAD 16:43
PROVIDERS: ATTEND Nurse Practitioner Family
DX: M96.1 Postlaminectomy syndrome, not elsewhere classified (principal); M51.26 Other intervertebral disc displacement, lumbar region; M48.061 Spinal stenosis, lumbar region without neurogenic claudication
CPT/HCPCS: 72133; Q9967

== ENCOUNTER → 2021-01-03 | Outpatient (CLI) | payer OTHER ==
[~2021-01-03] MED LIST changes: -ISOVUE-370 76% 100ML VIAL As Ordered ONE
--- NOTE | 2021-01-05 02:58 | ECWPNPC ---
PATIENT NAME: JO ANN MI : 1960 GENDER: MALE VISIT DATE: 01/03/2021 DISCHARGE DATE: 01/03/21 1425 VISIT LOCKED DATE TIME: PHYSICIAN: MALCOM NORTH PHYSICIAN PAGER NO: ACTIVE RESOURCE: MALCOM [facility] REASON FOR APPOINTMENT 1. 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 CURRENTLY USING OXYCODONE 5/325 1 TABLET NEEDED FOR SEVERE PAIN EPISODES WITH 45 TABLETS FOR 30 DAYS. BRINGS IN HIS MEDICINE WHICH IS APPROPRIATE FOR WHAT WAS DISPENSED. DOES FIND IT HELPFUL. TODAY I ADVISED HIM NOT TO TAKE IT EVERY DAY TWICE A DAY AND TO USE IT PERIODICALLY FOR SEVERE PAIN EPISODES. 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 STOPPED GABAPENTIN HE FELT IT CAUSED "SEIZURES". -. FALL RISK SCREENING: SCREENING COUPLE FALLS THIS YEAR NO MAJOR INJURIES. PATIENT STATED THAT HE BELIEVE THE GABAPENTIN IS THE CAUSE OF IT. PAIN SCREENING: PATIENT HAS A COMPLAINT OF ACUTE OR CHRONIC PAIN :YES LOCATION OF PAIN:LOW BACK INTENSITY OF PAIN (SCALE OF 1 TO 10):8 WHAT DOES YOUR PAIN FEEL LIKE:ACHING, BURNING, CONTINOUS, SHARP, STABBING, TENDER, SORE, SHOOTING DURATION:CONTINOUS, CONSTANT, ALL DAY, AWAKENS FROM SLEEP PAIN IS INCREASED BY:ACTIVITIES, PROLONGED STANDING PAIN IS DECREASED BY:SITTING NURSING NOTE: -. PAIN CENTER INTAKE QUESTIONS: DO YOU HAVE A HISTORY OF MRSA? :NO NOT SURE DO YOU TAKE A BLOOD THINNERS? :YES PLAVIX 75 MG DO YOU HAVE ANY BLEEDING DISORDERS? :NO ANY NEW NUMBNESS OR WEAKNESS IN YOUR LEGS OR ARMS? :YES IN BOTH LEGS ANY PACEMAKER,DEFIBRILLATOR, OR DORSAL COLUMN STIMULATOR? :NO PACEMAKER OR DEFIBRILLATOR DO YOU HAVE ANY RASHES OR OPEN SORES? :NO ARE YOU ALLERGIC TO IV DYE? :NO ARE YOU DIABETIC? :NO ANY NEW PROBLEMS WITH YOUR MEDICATIONS? :NO HAVE YOU RECEIVED A VACCINE IN THE PAST 30 DAYS? :NO DO YOU PLAN TO RECEIVE A VACCINE IN THE NEXT 21 DAYS? :NO DO YOU NEED ANY PRESCRIPTION? :NO DO YOU TAKE ANY IMMUNOSUPPRESSIVE MEDICATIONS? :NO IS THERE A CHANCE YOU COULD BE ? :NO ARE YOU BREAST FEEDING? :NO CURRENT MEDICATIONS TAKING FUROSEMIDE 40 MG TABLET 1 TABLET ORALLY ONCE A DAY TAKING LASIX 40 MG TABLET 1.5 TABLET ORALLY DAILY TAKING PANTOPRAZOLE SODIUM 40 MG TABLET DELAYED RELEASE 1 TABLET ORALLY ONCE A DAY TAKING FENOFIBRATE 160 MG TABLET 1 TABLET ORALLY ONCE A DAY TAKING AMITRIPTYLINE HCL 100 MG TABLET 1 TABLET AT BEDTIME ORALLY ONCE A DAY TAKING DULOXETINE HCL 60 MG CAPSULE DELAYED RELEASE PARTICLES 1 CAPSULE ORALLY ONCE A DAY TAKING METOPROLOL TARTRATE 25 MG TABLET 1 TABLET WITH FOOD ORALLY TWICE A DAY TAKING FENOFIBRATE 160 MG TABLET 1 TABLET ORALLY ONCE A DAY TAKING BACLOFEN 10 MG TABLET 1 TABLET NEEDED ORALLY THREE TIMES DAILY TAKING PROTONIX 40 MG TABLET DELAYED RELEASE 1 TABLET ORALLY ONCE A DAY TAKING MAY HAVE - - CPAP MACHINE AND SUPPLIES DX CODE G47.33 BEDTIME USE TAKING AMITRIPTYLINE HCL 100 MG TABLET 1 TABLET AT BEDTIME ORALLY ONCE A DAY TAKING PLAVIX 75 MG TABLET 1 TABLET ORALLY ONCE A DAY TAKING ATORVASTATIN CALCIUM 40 MG TABLET 1 TABLET ORALLY ONCE A DAY AT BEDTIME TAKING HYDROCODONE-ACETAMINOPHEN 7.5-325 MG TABLET 1 TABLET NEEDED ORALLY EVERY 6 HRS TAKING BUPRENORPHINE HCL 2 MG TABLET SUBLINGUAL 1 TABLET UNDER THE TONGUE AND ALLOW TO DISSOLVE SUBLINGUAL BID TAKING TRAZODONE HCL 100 MG TABLET 1 TABLET AT BEDTIME ORALLY ONCE A DAY TAKING DULOXETINE HCL 30 MG CAPSULE DELAYED RELEASE PARTICLES 1 CAPSULE C 60MG CAPSULE=90MG TOTAL ORALLY ONCE A DAY TAKING PERCOCET 5-325 MG TABLET 1 TABLET NEEDED ORALLY EVERY 6 HRS PRN FOR SEVERE PAIN MDD4 #45 TAB SHOULD LAST 30 DAYS NOT-TAKING ZOLPIDEM TARTRATE ER 12.5 MG TABLET EXTENDED RELEASE 1 TABLET AT BEDTIME NEEDED ORALLY ONCE A DAY NOT-TAKING BELBUCA 150 MCG FILM 1 FILM TO THE GUM BUCALLY EVERY 12 HRS NOT-TAKING BUTRANS 20 MCG/HR PATCH WEEKLY 1 PATCH TO SKIN TRANSDERMAL NOT-TAKING GABAPENTIN 800 MG TABLET 1 CAPSULE ORALLY THREE TIMES A DAY MEDICATION LIST REVIEWED AND RECONCILED WITH THE PATIENT PAST MEDICAL HISTORY CAD- [place] 1985, CABG 2013, STENTS IN 2009, ICD 2014 C CHF; 2016 WAS @ [facility] IN [place] C ANOTHER BLOCKED ARTERY THEN HTN-SINCE HIS 20'S HL ON LIPITOR SINCE 1989'S NEPTHROLITHIASIS INSOMNIA FOR YEARS NOCTURNAL HYPOXIA GERD-WAS ON PRILOSEC X10 YRS. OBESITY [address] [place], [place] DOWN TO 279 TODAY 6MOS. LATER IN [place], [place] LUMBAR DIS.-LAST MRI 2014 @ [facility] IN [place], [place]; S/P LUMB. LAMINECTOMY DEPRESSION STEPHANIE ON CPAP-SLEEP STUDY 05/2016 SYNCOPE-CT OF HEAD NEG. 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, R EAR ALSO H/O MRSA INFECTION IN [address] MARIAN REEVES PNEUMONIA WHILE IN [place] 3WEEKS HOSPITALIZED ALLERGIES PENICILLIN (FOR ALLERGIES USE ONLY): HIVES - ALLERGY NEUBANE: BEHAVIOR - ALLERGY CELEBREX: ANAPHYLAXIS - SIDE EFFECTS GABAPENTIN: RESTLESS LEGS - SIDE EFFECTS SOCIAL HISTORY GENERAL: TOBACCO USE ARE YOU A:NONSMOKER VAPORYES LATEX QUESTIONNAIRE LATEX ALLERGY : HAVE YOU EVER DEVELOPED ANY TYPE OF REACTION AFTER HANDLING LATEX PRODUCTS SUCH RUBBER GLOVES, CONDOMS, DIAPHRAGMS, BALLOONS, SOCKS, OR UNDERWEAR?NO LATEX ALLERGY : HAVE YOU EVER DEVELOPED ANY TYPE OF REACTION DURING OR AFTER DENTAL APPOINTMENT, VAGINAL/RECTAL EXAMINATION, SURGICAL PROCEDURE, OR ANY OTHER EXPOSURE?NO LATEX RISK : HAVE YOU EVER HAD ANY DIFFICULTY BREATHING OR HIVES AFTER EATING OR HANDLING ANY FRUITS, OR VEGETABLES; SUCH KIWI, BANANAS, STONE FRUITS, OR CHESTNUTSYES - PLEASE INDICATE : GRAPEFRUIST LATEX RISK : DO YOU HAVE A PREVIOUS PERSONAL HISTORY OF MORE THAN NINE SURGERIES, SPINA BIFIDA, OR REPEATED CATHERIZATIONS? NO LATEX RISK : ARE YOU FREQUENTLY EXPOSED TO LATEX PRODUCTS IN YOUR OCCUPATION?NO DATE ASKED : 01/03/2021 ALCOHOL USE: NO. LUNG CANCER SCREENING SMOKING STATUS:FORMER SMOKER IS THE PATIENT BETWEEN THE AGE OF 55 AND 77? 2PPD UNTIL AGE 37 ALCOHOL SCREENING DID YOU HAVE A DRINK CONTAINING ALCOHOL IN THE PAST YEAR?NO POINTS0 INTERPRETATIONNEGATIVE RECREATIONAL DRUG USE DRUG USE?NO POT WHEN IN TEENS CAFFEINE CAFFEINE USE?YES 2 CUPS COFFEE DAILY SEXUAL HX HAD SEX IN THE LAST 12 MONTHS (VAGINAL, ORAL, OR ANAL)?NO HAVE YOU EVER HAD AN STD?NO HIV / HEP-C SCREENING HIV TEST OFFERED TO PATIENT:YES DATE OFFERED:11/15/2016 TEST ACCEPTED:NO HEP-C TEST OFFERED TO PATIENT:YES DATE OFFERED:11/15/2016 REASON:PATIENT DECLINED TEST ACCEPTED:NO REASON:PATIENT DECLINED CATHOLIC [id number] LANGUAGE LANGUAGES SPOKEN:EMIRATI EDUCATION LEVEL OF EDUCATION:HIGH SCHOOL TECHNICAL TRAINING FOR WORK LEARNING BARRIERS / SPECIAL NEEDS CHANGE FROM LAST VISIT?NO BARRIERS TO LEARNING?NO HEARING IMPAIRED?YES 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 DIET: LOW FAT, LOW CHOLESTEROL. EXERCISE: WALKS DAILY STAIRS. MARITAL STATUS: SINGLE, SINGLE, X35YRS. OTHERS AT HOME: SON & [id number] & 3YO GRANDD.. REVIEW OF SYSTEMS CONSTITUTIONAL: ANY RECENT FEVER NO . CHILLS NO . WEIGHT CHANGE OF UNKNOWN REASONS NO . GASTROENTEROLOGY: NEW UNEXPLAINABLE CHANGES IN BOWEL CONTROL NO . CONSTIPATION NO . GENITOURINARY: ANY NEW CHANGE IN BLADDER CONTROL? NO . VITAL SIGNS WT 204.0 LBS, HT 66 IN, BMI 32.92 INDEX, BP 137/67 MM HG, HR 65 /MIN, RR 18 /MIN, TEMP 95.6 F, OXYGEN SAT % 97%, SAFE IN ENV? (Y/N) YES, NA INITIALS AW 1340T.MOLLY ROLAND. EXAMINATION GENERAL EXAMINATION: GENERALAWAKE,ALERT ,PLEASANT . PSYCHAFFECT NORMAL . LUNGS:LUNG MERA ARE CLEAR TO AUSCULTATION BILATERALLY. GOOD MOVEMENT OF AIR . HEART:S1, S2 IN A REGULAR RATE AND RHYTHM. NO SIGNIFICANT MURMURS, RUBS OR GALLOPS NOTED . ASSESSMENTS CHRONIC PRESCRIPTION OPIATE USE - Z79.891 (PRIMARY) SACROILIITIS - M46.1 TREATMENT CHRONIC PRESCRIPTION OPIATE USE LAB: URINE TEST GROUP KARL BARNES 01/03/2021 2:23:09 PM > LAST DOSE: PERCOCET 01/03/2021 SACROILIITIS CONTINUE PERCOCET TABLET, 5-325 MG, 1 TABLET NEEDED, ORALLY, EVERY 6 HRS PRN FOR SEVERE PAIN MDD4 #45 TAB SHOULD LAST 30 DAYS, 30 DAYS, 45 PROCEDURE CODES [id number] ESTABILISHED PATIENT [facility] F[facility] CHARGE DISPOSITION & COMMUNICATION FOLLOW UP 3 MONTHS (REASON: REVIEW UTOX) ELECTRONICALLY SIGNED BY LEON CHASE ON 01/04/2021 AT 12:17 PM EDT DISCLAIMER : THIS IS A VISIT SUMMARY EXTRACTED FROM THE [employer] CHART. IT IS NOT A COPY OF THE [employer] PROGRESS NOTE. MTDD
== END ==
LOC: M PAIN 13:45
PROVIDERS: ATTEND Nurse Practitioner Family
DX: M46.1 Sacroiliitis, not elsewhere classified (principal); G89.29 Other chronic pain; K21.9 Gastro-esophageal reflux disease without esophagitis; G47.33 Obstructive sleep apnea (adult) (pediatric); Z86.59 Personal history of other mental and behavioral disorders; Z86.14 Personal history of Methicillin resistant Staphylococcus aureus infection; Z88.0 Allergy status to penicillin; Z88.8 Allergy status to other drugs, medicaments and biological substances; Z79.01 Long term (current) use of anticoagulants; Z79.899 Other long term (current) drug therapy

== ENCOUNTER → 2021-04-05 | Outpatient (CLI) | payer OTHER | LOC: M PAIN 13:45 | PROVIDERS: ATTEND Anesthesiology | DX: M47.816 Spondylosis without myelopathy or radiculopathy, lumbar region (principal); M96.1 Postlaminectomy syndrome, not elsewhere classified; I25.2 Old myocardial infarction; K21.9 Gastro-esophageal reflux disease without esophagitis; G47.33 Obstructive sleep apnea (adult) (pediatric); Z86.59 Personal history of other mental and behavioral disorders; Z86.14 Personal history of Methicillin resistant Staphylococcus aureus infection; Z88.0 Allergy status to penicillin; Z88.8 Allergy status to other drugs, medicaments and biological substances; Z79.01 Long term (current) use of anticoagulants; Z79.899 Other long term (current) drug therapy ==

== ENCOUNTER → 2021-06-22 | Outpatient (CLI) | payer OTHER | LOC: M PAIN 09:45 | PROVIDERS: ATTEND Anesthesiology | DX: M47.816 Spondylosis without myelopathy or radiculopathy, lumbar region (principal); M96.1 Postlaminectomy syndrome, not elsewhere classified; K21.9 Gastro-esophageal reflux disease without esophagitis; G47.33 Obstructive sleep apnea (adult) (pediatric); Z86.59 Personal history of other mental and behavioral disorders; Z86.14 Personal history of Methicillin resistant Staphylococcus aureus infection; Z87.891 Personal history of nicotine dependence; Z88.0 Allergy status to penicillin; Z88.8 Allergy status to other drugs, medicaments and biological substances; Z79.01 Long term (current) use of anticoagulants; Z79.899 Other long term (current) drug therapy ==

== ENCOUNTER → 2021-08-16 | Outpatient (CLI) | payer OTHER | LOC: M LABSMTC 09:11 | PROVIDERS: ATTEND Anesthesiology | DX: Z11.52 Encounter for screening for COVID-19 (principal) ==

== ENCOUNTER → 2021-08-21 | Outpatient (CLI) | payer OTHER ==
[~2021-08-21] MED LIST changes: +BUPIVACAINE HCL 0.25% 30ML VIAL As Ordered ONE; +ISOVUE-M 300 61% 15ML VIAL As Ordered ONE; +LIDOCAINE 1% SDV 30ML VIAL As Ordered ONE
== END ==
LOC: M PAIN 08:30
PROVIDERS: ATTEND Anesthesiology
DX: M47.816 Spondylosis without myelopathy or radiculopathy, lumbar region (principal); M47.817 Spondylosis without myelopathy or radiculopathy, lumbosacral region; G47.33 Obstructive sleep apnea (adult) (pediatric); Z95.0 Presence of cardiac pacemaker; Z86.59 Personal history of other mental and behavioral disorders; Z86.14 Personal history of Methicillin resistant Staphylococcus aureus infection; Z88.0 Allergy status to penicillin; Z88.8 Allergy status to other drugs, medicaments and biological substances
CPT/HCPCS: 64493; 64494; Q9967

== ENCOUNTER → 2021-09-21 | Outpatient (CLI) | payer OTHER ==
[~2021-09-21] MED LIST changes: -BUPIVACAINE HCL 0.25% 30ML VIAL As Ordered ONE; -ISOVUE-M 300 61% 15ML VIAL As Ordered ONE; -LIDOCAINE 1% SDV 30ML VIAL As Ordered ONE
== END ==
LOC: M PAIN 14:00
PROVIDERS: ATTEND Nurse Practitioner Family
DX: M47.816 Spondylosis without myelopathy or radiculopathy, lumbar region (principal); G89.29 Other chronic pain; M47.817 Spondylosis without myelopathy or radiculopathy, lumbosacral region; G47.33 Obstructive sleep apnea (adult) (pediatric); K21.9 Gastro-esophageal reflux disease without esophagitis; Z86.59 Personal history of other mental and behavioral disorders; Z86.14 Personal history of Methicillin resistant Staphylococcus aureus infection; Z87.891 Personal history of nicotine dependence; Z88.0 Allergy status to penicillin; Z88.8 Allergy status to other drugs, medicaments and biological substances; Z79.01 Long term (current) use of anticoagulants; Z79.899 Other long term (current) drug therapy